=== PATIENT | female | born 2000 | race Caucasian/White ===

== ENCOUNTER 2020-05-30 15:21 | Emergency (ER) | payer OTHER, SELFPAY ==
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
[2020-05-30 16:02] VITALS: BP 121/88; PULSE 75; RESP 18; TEMP 36.7; O2SAT 96; BMI 22.3
[2020-05-30 17:35] LABS: MANUAL DIFF FLAG NO
[2020-05-30 17:39] LABS: Basophils Percent Auto 0.3 % (0-2); Eosinophils Absolute Auto 0.1 X10*3/uL (0.0-0.4); Eosinophils Percent Auto 0.5 % (0-4); Imm Gran Abs Auto 0.02 X10*3/uL (0.00-0.03); Imm Gran Pct Auto 0.2 % (0.0-0.4); Lymphocytes Absolute Auto 2.3 X10*3/uL (1.2-4.9); Lymphocytes Percent Auto 21.1 % (20-40); Mean Corpuscular HGB Conc 31.1 g/dl (31.0-35.0); Mean Corpuscular Hemoglobin 26.7 pg (27.0-33.0); Mean Corpuscular Volume 85.9 fL (80-98); Mean Platelet Volume 10.8 fL (9.4-12.3); Monocytes Absolute Auto 0.5 X10*3/uL (0.1-1.2); Monocytes Percent Auto 4.5 % (2-11); Neutrophils Absolute Auto 7.8 X10*3/uL (2.0-8.3); Neutrophils Percent Auto 73.4 % (45-73); Platelet Count 274 X10*3/uL (160-400); Red Blood Count 5.24 X10*6/uL (4.20-5.50); Red Cell Distribution Width 15.9 % (11.0-16.0); White Blood Count 10.7 X10*3/uL (4.8-10.8)
[2020-05-30 17:40] LABS: COVID-19 Test Negative (Negative)
[2020-05-30 17:58] VITALS: BP 118/83; PULSE 91; RESP 16; TEMP 36.3; O2SAT 99
--- NOTE | 2020-05-30 18:00 | PC.NURSE ---
Pt has bed search in progress.
[2020-05-30 18:02] LABS: Alanine Aminotransferase 18 U/L (0-31); Albumin Level 4.6 g/dL (3.5-5.0); Alkaline Phosphatase 100 U/L (39-117); Anion Gap 14 (12-20); Aspartate Amino Transferase 20 U/L (5-31); Bilirubin Direct < 0.2 mg/dL (0.0-0.5); Bilirubin Total 0.3 mg/dL (0.0-1.0); Blood Urea Nitrogen 7 mg/dL (9-16); Calcium 9.5 mg/dL (8.4-10.2); Carbon Dioxide 28 mmol/L (22-29); Chloride 102 mmol/L (96-108); Creatinine Clr Calc Pharmacy 98.9; Estimated Glomerular Filt Rate > 60; Glucose Random 75 mg/dL (60-115); Sodium 140 mmol/L (135-145); Total Protein 7.5 g/dL (6.5-8.0)
[2020-05-30 22:10] VITALS: BP 126/89; PULSE 109; RESP 20; TEMP 36.3; O2SAT 97
--- NOTE | 2020-05-30 22:26 | PC.NURSE ---
Addendum entered by Robbin Abreu 05/30/20 23:05: PT stated that she is having difficulty breathing. RT came to give nebulizer treatment to the PT. Tested COVID negative earlier today. Original Note: PT stated that she is having difficulty breathing. Asking for a nebulizer treatment but we are unable to use nebulizers at this time due to risk of creating aerosols that could potentially transmit COVID. PT offered rescue inhaler but refused because of her allergies, stating that she becomes tachycardic with albuterol. Provider notified.
[2020-05-30] MEDS: hydrOXYzine HCL 25 MG TABLET PO (22:33)
--- NOTE | 2020-05-30 23:26 | PC.NURSE ---
PT stated that she needs her night time meds before she can go to sleep. PT stated that she takes trazodone, Singulair, and GERD medications at night, but pharmacy scheduled the doses of each med for tomorrow morning. Provider notified. Meds given at unscheduled time.
[2020-05-30] MEDS: Omeprazole 20 MG CAPSULE.DR 40 MG PO (23:35)
[2020-05-30] MEDS: Montelukast Sodium 10 MG TABLET PO (23:36)
[2020-05-30] MEDS: traZODone HCL 50 MG TABLET 75 MG PO (23:36)
[2020-05-30 23:52] VITALS: BP 122/57; PULSE 82; RESP 18; TEMP 36.7; O2SAT 97
[2020-05-31] VITALS (9 sets, daily range): BP systolic 97–155; BP diastolic 54–86; PULSE 63–117; RESP 16–20; TEMP 36.2–37; O2SAT 97–99
--- NOTE | 2020-05-31 06:57 | PC.NURSE ---
Report received. PT currently sleeping, respirations even and unlabored, in no apparent distress. PT remains inpatient bedsearch.
[2020-05-31] MEDS: Omeprazole 20 MG CAPSULE.DR 40 MG PO (07:49)
--- NOTE | 2020-05-31 09:21 | PC.NURSE ---
medications discussed with PT, she states that she takes singulair at night. PT reports that she has a lot of medical conditions and allergies, pt asking to speak with [facility], requested to go to respite, plan of care explained. Pt due to [facility] this afternoon.
[2020-05-31] MEDS: Gabapentin 300 MG CAPSULE 900 MG PO ×2 (09:25→21:56)
[2020-05-31] MEDS: levalbuterol HCL 1.25 MG/3 ML VIAL.NEB INHALE ×2 (09:25→20:50)
[2020-05-31] MEDS: FLUoxetine HCl 20 MG CAPSULE PO (09:25)
[2020-05-31] MEDS: Loratadine 10 MG TABLET PO (09:27)
[2020-05-31 15:40] LABS: UPreg QC Valid YES; Urine Pregnancy NEGATIVE (NEGATIVE)
[2020-05-31 16:04] LABS: Amphetamine Screen Urine Not Detected (Not Detect); Barbiturates, Urine Not Detected (Not Detect); Benzodiazepines Screen Urine Not Detected (Not Detect); Cannabinoid Screen Urine POSITIVE (Not Detect); Cocaine Screen Urine Not Detected (Not Detect); Opiate Screen Urine Not Detected (Not Detect); Phencyclidine Screen Urine Not Detected (Not Detect)
--- NOTE | 2020-05-31 19:46 | PC.NURSE ---
Report received. PT was just reevaluated by Rachell and decision was made to continue to hold this PT as inpatient bed search. PT is tearful and upset at this time. Verbal reassurance provided to the PT and PT was able to maintain behavioral control.
[2020-05-31] MEDS: hydrOXYzine HCL 25 MG TABLET PO (20:01)
--- NOTE | 2020-05-31 20:43 | PC.NURSE ---
PT is complaining of shortness of breath and inflammation in her upper airway. PT had oxygen saturation fluctuating between 90-100%, inspiratory stridor, and an increased heart rate. PT is insisting that the only medication that will help her condition is racemic epinephrine, as she also has a long history of respiratory issues. Provider assessed the PT and ordered a breathing treatment with levobuterol. PT received treatment and is still exhibiting stridor and complaining of shortness of breath.
[2020-05-31] MEDS: Racepinephrine HCL 0.5 ML VIAL.NEB INHALE (21:09)
--- NOTE | 2020-05-31 21:20 | PC.NURSE ---
PT received racemic epinephrine. Stridor has resolved itself and PT is talking on the phone in a calm and relaxed manner. PT's heart rate has decreased and PT is no longer complaining of shortness of breath. PT asked if she can have a pair of underwear dropped off by her family as she is on her period. This nurse told the PT that this would be allowable.
[2020-05-31] MEDS: traZODone HCL 50 MG TABLET 75 MG PO (21:55)
[2020-05-31] MEDS: Montelukast Sodium 10 MG TABLET PO (21:57)
[2020-05-31] MEDS: Mirtazapine 7.5 MG TABLET PO (21:57)
[2020-06-01 06:00] VITALS: BP 109/62; PULSE 98; RESP 20; TEMP 36.2; O2SAT 95
[2020-06-01] MEDS: Omeprazole 20 MG CAPSULE.DR 40 MG PO (06:52)
--- NOTE | 2020-06-01 07:05 | PC.NURSE ---
Report received. PT currently sleeping, respirations even and unlabored, in no apparent distress. PT is inpatient bedsearch.
[2020-06-01] MEDS: Gabapentin 300 MG CAPSULE 900 MG PO (09:24)
[2020-06-01] MEDS: FLUoxetine HCl 20 MG CAPSULE PO (09:24)
[2020-06-01] MEDS: Loratadine 10 MG TABLET PO (09:24)
[2020-06-01 09:31] VITALS: BP 109/61; PULSE 83; TEMP 36.5; O2SAT 97
--- NOTE | 2020-06-01 10:50 | PC.NURSE ---
Pt accepted [facility] for 4pm today, nurse to nurse completed with chadwick. Chadwick requested a copy of Pts covid result and section 12 to be faxed.
== END 2020-06-01 16:00 ==
PROVIDERS: Nurse Practitioner Family; Emergency Provider Emergency Medicine Emergency Medical Services; PCP Pediatrics
DX: F32.9 Major depressive disorder, single episode, unspecified (principal); F43.11 Post-traumatic stress disorder, acute; R45.851 Suicidal ideations; Z20.828 Contact with and (suspected) exposure to other viral communicable diseases; Z79.899 Other long term (current) drug therapy
CPT/HCPCS: 36415; 80048; 80076; 80307; 81025; 85025; 87635; 94640; 99285

== ENCOUNTER 2024-08-05 13:17 | Outpatient (AMB) | payer MEDICARE, MEDICAID, SELFPAY ==
[2024-08-05 13:18] VITALS: BP 100/68; PULSE 68; O2SAT 96; BMI 26.0
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
--- OUTSIDE RECORDS SUMMARY | 2024-08-05 14:53 | XMS_ITS | Encounter Summary ---
Author Organization [facility] Address [address] [place] [address] Care Team Providers Care Lathing Supervisor Name Role Phone Eddie, Amy Gonzales SINGH Primary Care Provider [phone] Reason for Visit * Reason Comments Medication Refill Encounter Details Date Type Department Care Team (Late st Contact Info) Description 12/11/2019 Refill [facility] Gastroenterology, [place] [address] [place] [address] Elif Bolton MD [address] [place] [address] Poor appetite Social History Tobacco Use Types Packs/Day Years Used Date Smoking Tobacco: Never Comments No Sex and Gender Information Value Date Recorded Sex Assigned at Not on file Legal Sex Female 2:19 PM EDT Gender Identity Not on file Sexual Orientation Not on file documented as of this encounter Miscellaneous Notes * Telephone Encounter - Jayde Montesinos RN - 12/12/2019 2:31 PM EDT Spoke with [facility]ong and she stated she is not taking this medication and does not need it refilled. * Telephone Encounter - Jayde Montesinos RN - 12/12/2019 9:09 AM EDT Last visit: 12/05/19 Next visit: 03/06/20 Weight: 63.1 kg Allergies: reviewed Current dose: Reviewed Called [facility] [phone] to verify cyproheptadine is one of her active medications. Left voicemail message. documented in this encounter Plan of Treatment Not on file documented as of this encounter Visit Diagnoses Diagnosis Poor appetite Anorexia documented in this encounter Care Teams Lathing Supervisor Relationship Specialty Start Date End Date Eduarda Morgan DO [address] [place] [address] PCP - General General Pediatrics 03/03/19 documented as of this encounter
--- OUTSIDE RECORDS SUMMARY | 2024-08-05 14:53 | XMS_ITS | Encounter Summary ---
Author Organization [facility] Address [address] [place] [id number] Care Team Providers Care Manager Of Health Name Role Phone Eduarda Morgan DO Primary Care Provider [phone] Reason for Visit * Reason Comments Medication Refill Encounter Details Date Type Department Care Team (Late st Contact Info) Description 06/12/2019 Refill [facility] Gastroenterology[address] [phone] Elif Bolton MD [address] [place] [id number] Generalized abdominal pain Social History Tobacco Use Types Packs/Day Years Used Date Smoking Tobacco: Never Comments No Sex and Gender Information Value Date Recorded Sex Assigned at Not on file Legal Sex Female 2:19 PM EDT Gender Identity Not on file Sexual Orientation Not on file documented as of this encounter Plan of Treatment Not on file documented as of this encounter Visit Diagnoses Diagnosis Generalized abdominal pain Abdominal pain, generalized documented in this encounter Care Teams Manager Of Health Relationship Specialty Start Date End Date Eduarda Morgan DO [address] [place] [address] PCP - General General Pediatrics 03/03/19 documented as of this encounter
--- OUTSIDE RECORDS SUMMARY | 2024-08-05 14:53 | XMS_ITS | Encounter Summary ---
Author Organization [facility] Address [address] [place] [address] Care Team Providers Care Photograph Developer Name Role Phone Eduarda Morgan DO Primary Care Provider [phone] Reason for Visit * Reason Comments Medication Refill Encounter Details Date Type Department Care Team (Late st Contact Info) Description 02/28/2020 Refill [facility] Gastroenterology, [place] [address] [place] [address] Elif Bolton MD [address] [place] [address] Poor appetite Social History Tobacco Use Types Packs/Day Years Used Date Smoking Tobacco: Never Comments No Sex and Gender Information Value Date Recorded Sex Assigned at Not on file Legal Sex Female 2:19 PM EDT Gender Identity Not on file Sexual Orientation Not on file documented as of this encounter Miscellaneous Notes * Telephone Encounter - Jayde Montesinos RN - 02/28/2020 11:44 AM EDT Last visit: 12/05/19 Next visit: 03/06/20 Weight: 63.1 KG Allergies: reviewed Current dose: 12/11/19 message patient is not longer taking this medication documented in this encounter Plan of Treatment Not on file documented as of this encounter Visit Diagnoses Diagnosis Poor appetite Anorexia documented in this encounter Care Teams Photograph Developer Relationship Specialty Start Date End Date Eduarda Morgan DO [address] [place] [address] PCP - General General Pediatrics 03/03/19 documented as of this encounter
--- OUTSIDE RECORDS SUMMARY | 2024-08-05 14:53 | XMS_ITS | Clinical Summary ---
Author Organization [facility] Address [address] [place] [id number] Care Team Providers Care Stripper Shovel Operator Name Role Phone Eduarda Morgan DO Primary Care Provider [phone] Source Comments Please note that some or all of the patient's information could have additional privacy protections. State laws allow health care providers to render certain types of treatment to minors without parental consent. Please do not assume that this information can be shared solely by obtaining just the consent of the patient's parent/guardian. Please determine if all or part of the patient's care was rendered without parent/guardian involvement. And, if so, obtain the minor's consent prior to disclosure.[facility] Allergies Active Allergy Reactions Criticality Noted Date Comments Albuterol Hives 03/21/2019 Venom-Honey Bee 05/11/2019 Egg Diarrhea 05/11/2019 uncooked eggs per mom Grass 05/11/2019 Medications mometasone/formo terol (DULERA INHL) Inhale into the lungs Active montelukast sodium (SINGULAIR ORAL) Take by mouth Active fluticasone/julio nterol (BREO ELLIPTA INHL) Inhale into the lungs Active ipratropium (ATROVENT HFA) 17 mcg/actuation inhaler Inhale into the lungs every 6 (six) hours Active GABAPENTIN ORAL Take 900 mg by mouth 2 (two) times daily Active adalimumab (HUMIRA SUBQ) Inject into the skin Active omeprazole (PRILOSEC) 40 MG capsule Take 40 mg by mouth 2 (two) times daily Active etanercept (ENBREL SUBQ) Inject into the skin Active cyclobenzaprine (FLEXERIL) 5 MG tablet Take 5 mg by mouth nightly 0 9 Active FLUoxetine (PROZAC) 10 MG capsule Take 10 mg by mouth daily 1 9 Active ferrous gluconate 37.5 mg of elemental iron Tablet Take 75 mg of elemental iron by mouth 2 (two) times daily 4 9 Active traZODone (DESYREL) 50 MG tablet 0 Active FLUoxetine (PROZAC) 20 MG capsule Take 20 mg by mouth daily 0 Active cetirizine (ZYRTEC) 10 MG tablet 0 Active XULANE 150-35 mcg/24 hr 0 Active butalbital-aceta minophen-caffein e (ESGIC) 50-325-40 mg per tablet 0 Active INCRUSE ELLIPTA 62.5 mcg/actuation Disk with Device 0 Active polyethylene glycol (MIRALAX) 17 gram/dose powderIndication s:Constipation, unspecified constipation type 1 capful ( mixed in 8 oz water), once a day 507 g 3 0 Active dicyclomine (BENTYL) 10 MG capsuleIndicatio ns:Generalized abdominal pain TAKE 1 CAPSULE BY MOUTH TWICE A DAY 60 capsule 2 0 Active Additional Information Patient not taking.Reported on 12/05/2019 baclofen 5 mg TabletIndication s:Gastroesophage al reflux disease, esophagitis presence not specified Take 1 tablet (5 mg) by mouth 3 (three) times daily 90 tablet 2 0 Active Active Problems Problem Noted Date Diagnosed Date Dyspnea on exertion 05/11/2019 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 Palpitations 05/11/2019 H/O endoscopy 05/11/2019 Gastroesophageal reflux dise ase, esophagitis presence not specified 03/31/2019 Overview (03/31/2019): Added automatically from request for surgery [id number] Immunizations Name Administration Dates Next Due Influenza, Unspecified 02/28/2019 Family History Medical History Relation Name Comments Asthma Brother Bipolar disorder Brother Cardiac Surgery Brother Alcohol abuse Father Asthma Father Hypertension Maternal Aunt Heart disease Maternal Grandfather Hypertension Maternal Grandfather Diabetes type II Maternal Grandmother Hypertension Maternal Uncle Arthritis Mother Hypertension Mother Mental illness Paternal Aunt Alzheimer's disease Paternal Grandfather Cancer Paternal Grandmother Diabetes type II Paternal Grandmother No Known Problems Paternal Uncle Anxiety disorder Sister Asthma Sister Anesthesia problems Neg Hx Relation Name Status Comments Brother Father Maternal Aunt Maternal Grandfather Maternal Grandmother Alive Maternal Uncle Mother Alive Paternal Aunt Paternal Grandfather Paternal Grandmother Paternal Uncle Sister Social History Tobacco Use Types Packs/Day Years Used Date Smoking Tobacco: Never Other Needs Answer Date Recorded Anything else about your child you'd like help w ith? Not on file 02/13/2023 Share good news about positive changes: Not on f ile 02/13/2023 Comments No Sex and Gender Information Value Date Recorded Sex Assigned at Not on file Legal Sex Female 2:19 PM EDT Gender Identity Not on file Sexual Orientation Not on file Last Filed Vital Signs Vital Sign Reading Time Taken Comments Blood Pressure 122/72 12/05/2019 1:43 PM EDT Pulse 80 12/05/2019 1:43 PM EDT Temperature 36.7 ??C (98.1 ??F) 05/12/2019 9:33 AM ES T Respiratory Rate 19 05/12/2019 10:08 AM EST Oxygen Saturation 95% 05/12/2019 10:08 AM EST Inhaled Oxygen Concentration - - Weight 63.1 kg (139 lb 1.8 oz) 12/05/2019 1:43 P M EDT Height 157.8 cm (5' 2.13 ) 12/05/2019 1:43 PM ED T Body Mass Index 25.34 12/05/2019 1:43 PM EDT Plan of Treatment Health Maintenance Due Date Last Done Comments DTaP/TDAP/TD VACCINES (1 - Tdap) 11/05/2007 ADOLESCENT HIV SCREENING 2013 COVID-19 Vaccine (2023-2 5 season) 2024 INFLUENZA (#1) 2024 02/28/2019 NIRSEVIMAB VACCINES UNDER 8 MONTHS Aged Out No longer eligible b ased on patient's age to complete this topic Insurance [facility] ([employer]) Care Teams Stripper Shovel Operator Relationship Specialty Start Date End Date Eduarda Morgan DO [address] [place] [address] PCP - General General Pediatrics 03/03/19
--- OUTSIDE RECORDS SUMMARY | 2024-08-05 14:53 | XMS_ITS | Encounter Summary ---
Author Organization [facility] Address [address] [place] [address] Care Team Providers Care Facilities Locator Name Role Phone Eduarda Morgan DO Primary Care Provider [phone] Reason for Visit * Reason Comments Medication Refill Encounter Details Date Type Department Care Team (Late st Contact Info) Description 10/02/2019 Refill [facility] Gastroenterology[address] [phone] Elif Bolton MD [address] [place] [phone] Generalized abdominal pain Social History Tobacco Use Types Packs/Day Years Used Date Smoking Tobacco: Never Comments No Sex and Gender Information Value Date Recorded Sex Assigned at Not on file Legal Sex Female 2:19 PM EDT Gender Identity Not on file Sexual Orientation Not on file documented as of this encounter Miscellaneous Notes * Telephone Encounter - Jayde Montesinos RN - 10/03/2019 10:53 AM EDT Last visit: 07/12/2019 Next visit: 10/11/2019 Weight: 64.8 kg Allergies: reviewed Current dose: Bentyl 10 mg tab documented in this encounter Plan of Treatment Not on file documented as of this encounter Visit Diagnoses Diagnosis Generalized abdominal pain Abdominal pain, generalized documented in this encounter Care Teams Facilities Locator Relationship Specialty Start Date End Date Eduarda Morgan DO [address] [place] [address] PCP - General General Pediatrics 03/03/19 documented as of this encounter
--- OUTSIDE RECORDS SUMMARY | 2024-08-05 14:53 | XMS_ITS | Clinical Summary ---
Author Organization [facility] Address [address] [place] [address] Care Team Providers Care Photocopying Equipment Mechanic Name Role Phone Unavailable Primary Care Provider Unavailabl e Social History Tobacco Use Types Packs/Day Years Used Date Smoking Tobacco: Never Assessed Comments Unknown Sex and Gender Information Value Date Recorded Sex Assigned at Not on file Legal Sex Female 11:03 PM EST Gender Identity Not on file Sexual Orientation Not on file Plan of Treatment Health Maintenance Due Date Last Done Comments Gonorrhea/Chlamydia Screening 2000 HPV Vaccines (1 - 3-dose series) 11/05/2015 Meningococcal B Vacine (1 of 2 - Standard) 2016 DTaP,Tdap,and Td Vaccines (1 - Tdap) 11/05/2019 Hepatitis B Vaccines (1 of 3 - 19+ 3-dose series) 11/05/2019 Cervical Cancer Screening: P ap Smear 2021 Depression Screening 05/04/2022 HIV Screening 05/04/2022 Hepatitis C Screening 05/04/2022 Social Influencers of Health Screening 05/04/2022 COVID-19 Vaccine (2023-2 5 season) 2024 Influenza Vaccine (#1) 2024 0, 07/02/2019 Pneumococcal Vaccine: Pediatrics (0 to 5 Years) and At-Risk Patients (6 to 64 Years) Aged Out 06/15/2013 No longer eligible b ased on patient's age to complete this topic HIB Vaccines Aged Out No longer eligi ble based on patient's age to complete this topic Hepatitis A Vaccines Aged Out No long er eligible based on patient's age to complete this topic IPV Vaccines Aged Out No longer eligi ble based on patient's age to complete this topic MMR Vaccines Aged Out No longer eligi ble based on patient's age to complete this topic Meningococcal ACWY Vaccine Aged Out N o longer eligible based on patient's age to complete this topic RSV Immunization Patients Under 20 months Aged Out No longer eligible b ased on patient's age to complete this topic Varicella Vaccines Aged Out No longer eligible based on patient's age to complete this topic
== END 2024-08-05 14:02 | disposition home or self-care (01) ==
DX: J45.909 Unspecified asthma, uncomplicated (principal); K21.9 Gastro-esophageal reflux disease without esophagitis; M54.9 Dorsalgia, unspecified; F43.10 Post-traumatic stress disorder, unspecified; F32.9 Major depressive disorder, single episode, unspecified; F41.9 Anxiety disorder, unspecified; K58.9 Irritable bowel syndrome, unspecified; R06.1 Stridor; G47.00 Insomnia, unspecified

== ENCOUNTER → 2024-08-05 13:17 | Outpatient (BNVA) | payer MEDICARE, SELFPAY | DX: J45.909 Unspecified asthma, uncomplicated (principal); K21.9 Gastro-esophageal reflux disease without esophagitis; M54.9 Dorsalgia, unspecified; F32.9 Major depressive disorder, single episode, unspecified; F41.9 Anxiety disorder, unspecified; K58.9 Irritable bowel syndrome, unspecified; G47.00 Insomnia, unspecified; R06.1 Stridor | CPT/HCPCS: 99202 ==

== ENCOUNTER 2024-08-11 11:30 | Outpatient (REF) | payer MEDICARE, MEDICAID, SELFPAY ==
[2024-08-11 12:10] LABS: MANUAL DIFF FLAG NO
[2024-08-11 12:52] LABS: Basophils Percent Auto 0.5 % (0-2); Eosinophils Absolute Auto 0.1 X10*3/uL (0.0-0.4); Eosinophils Percent Auto 2.3 % (0-4); Hematocrit 44.9 % (37.0-47.0); Hemoglobin 15.1 g/dl (12.0-16.0); Imm Gran Abs Auto 0.01 X10*3/uL (0.00-0.03); Imm Gran Pct Auto 0.2 % (0.0-0.4); Lymphocytes Percent Auto 33.1 % (20-40); Mean Corpuscular HGB Conc 33.6 g/dl (31.0-35.0); Mean Corpuscular Hemoglobin 29.7 pg (27.0-33.0); Mean Corpuscular Volume 88.4 fL (80.0-98.0); Mean Platelet Volume 10.2 fL (9.4-12.3); Monocytes Absolute Auto 0.4 X10*3/uL (0.1-1.2); Monocytes Percent Auto 6.2 % (2-11); Neutrophils Absolute Auto 3.5 x10*3/uL (2.0-8.3); Neutrophils Percent Auto 57.7 % (45-73); Platelet Count 241 X10*3/uL (160-400); Red Blood Count 5.08 X10*6/uL (4.20-5.50); Red Cell Distribution Width 12.7 % (11.0-16.0)
[2024-08-11 13:28] LABS: Alanine Aminotransferase 20 U/L (0-31); Albumin Level 4.4 g/dL (3.5-5.0); Alkaline Phosphatase 79 U/L (39-117); Anion Gap 9 (12-20); Aspartate Amino Transferase 21 U/L (5-31); Bilirubin Total 0.4 mg/dL (0.0-1.0); Blood Urea Nitrogen 18 mg/dL (9-16); Calcium 9.3 mg/dL (8.4-10.2); Carbon Dioxide 26 mmol/L (22-29); Chloride 109 mmol/L (96-108); Estimated Glomerular Filt Rate > 60; Glucose Random 79 mg/dL (60-115); Potassium 4.4 mmol/L (3.3-5.1); Sodium 140 mmol/L (135-145); Total Protein 7.4 g/dL (6.5-8.0)
[2024-08-11 13:44] LABS: Free T4 (Free Thyroxine) 0.92 ng/dL (0.71-1.85); TSH reflex Free T4 1.94 uIU/mL (0.32-4.0); Vitamin D 25-OH Total 17.4 ng/mL (>30)
[2024-08-11 14:06] LABS: Folate 15.7 ng/mL (> or = 4.0); Vitamin B12 601 pg/mL (200-900)
--- OUTSIDE RECORDS SUMMARY | 2024-08-11 14:53 | XMS_ITS | Encounter Summary ---
Author Organization [facility] Address [address] [place] [address] Care Team Providers Care Window Unit Air Conditioning Mechanic Name Role Phone Eddie, Amy Gonzales SINGH Primary Care Provider [phone] Reason for Visit * Reason Comments Medication Refill Encounter Details Date Type Department Care Team (Late st Contact Info) Description 12/11/2019 Refill [facility] Gastroenterology, [place] [address] [place] [address] Elif Bolton MD [address] [place] [address] Poor appetite Social History Tobacco Use Types [...] Allergies: reviewed Current dose: Reviewed Called [facility] [phone] to verify cyproheptadine is one of her active medications. Left voicemail message. documented in this encounter Plan of Treatment Not on file documented as of this encounter Visit Diagnoses Diagnosis Poor appetite Anorexia documented in this encounter Care Teams Window Unit Air Conditioning Mechanic Relationship Specialty Start Date End Date Eduarda Morgan DO [address] [place] [address] PCP - General General Pediatrics 03/03/19 documented as of this encounter
--- OUTSIDE RECORDS SUMMARY | 2024-08-11 14:53 | XMS_ITS | Encounter Summary ---
Author Organization [facility] Address [address] [place] [address] Care Team Providers Care Ager Operator Name Role Phone Eduarda Morgan DO Primary Care Provider [phone] Reason for Visit * Reason Comments Medication Refill Encounter Details Date Type Department Care Team (Late st Contact Info) Description 10/02/2019 Refill [facility] Gastroenterology[address] [phone] Elif Bolton MD [address] [place] [address] Generalized abdominal pain Social History Tobacco Use [...] generalized documented in this encounter Care Teams Ager Operator Relationship Specialty Start Date End Date Eduarda Morgan DO [address] [place] [address] PCP - General General Pediatrics 03/03/19 documented as of this encounter
--- OUTSIDE RECORDS SUMMARY | 2024-08-11 14:53 | XMS_ITS | Encounter Summary ---
Author Organization [facility] Address [address] [place] [address] Care Team Providers Care Data Librarian Name Role Phone Eduarda Morgan DO Primary Care Provider [phone] Reason for Visit * Reason Comments Medication Refill Encounter Details Date Type Department Care Team (Late st Contact Info) Description 06/12/2019 Refill [facility] Gastroenterology[address] [phone] Elif Bolton MD [address] [place] [address] Generalized abdominal pain Social History Tobacco Use [...] generalized documented in this encounter Care Teams Data Librarian Relationship Specialty Start Date End Date Eduarda Morgan DO [address] [place] [address] PCP - General General Pediatrics 03/03/19 documented as of this encounter
--- OUTSIDE RECORDS SUMMARY | 2024-08-11 14:53 | XMS_ITS | Clinical Summary ---
Author Organization [facility] Address [address] [place] [address] Care Team Providers Care Tack Cleaner Name Role Phone Unavailable Primary Care Provider [...]
--- OUTSIDE RECORDS SUMMARY | 2024-08-11 14:53 | XMS_ITS | Clinical Summary ---
Author Organization [facility] Address [address] [place] [address] Care Team Providers Care Dynamics Ax Solution Architect Name Role Phone Eduarda Morgan DO Primary Care Provider [phone] Source Comments Please note that some or [...] so, obtain the minor's consent prior to disclosure.[facility] Allergies Active Allergy Reactions Criticality Noted [...] (03/31/2019): Added automatically from request for surgery [id number] Immunizations Immunization Administration Dates Next Due Influenza, Unspecified 02/28/2019 [...] patient's age to complete this topic Insurance [facility] ([email or web address]) Care Teams Dynamics Ax Solution Architect Relationship Specialty Start Date End Date Eduarda Morgan DO [address] [place] [address] PCP - General General Pediatrics 03/03/19
--- OUTSIDE RECORDS SUMMARY | 2024-08-11 14:53 | XMS_ITS | Encounter Summary ---
Author Organization [facility] Address [address] [place] [address] Care Team Providers Care Engineering Specialist Technician Name Role Phone Eduarda Morgan DO Primary Care Provider [phone] Reason for Visit * Reason Comments Medication Refill Encounter Details Date Type Department Care Team (Late st Contact Info) Description 02/28/2020 Refill [facility] Gastroenterology, [place] [address] [place] [address] Elif Bolton MD [address] [place] [address] Poor appetite Social History Tobacco Use Types [...] Anorexia documented in this encounter Care Teams Engineering Specialist Technician Relationship Specialty Start Date End Date Eduarda Morgan DO [address] [place] [address] PCP - General General Pediatrics 03/03/19 documented as of this encounter
== END 2024-08-11 11:31 | disposition home or self-care (01) ==
LOC: HO.LAB 11:30
DX: Z00.00 Encounter for general adult medical examination without abnormal findings (principal)
CPT/HCPCS: 36415; 80053; 82306; 82607; 82746; 84439; 84443; 85025

== ENCOUNTER 2024-09-06 10:07 | Outpatient (AMB) | payer MEDICARE, MEDICAID, SELFPAY ==
--- NOTE | 2024-09-06 10:11 | A.OFFPC_ITS ---
Intake Visit Reasons: f/u medication Intake Note: Patient is here to follow up on medication review. Pt requesting excuse letter for work. Senior Clinician Required: No Nurse Practitioner Manager: Not Required per policy Accompanied by: Self / Same As Patient Allergies albuterol Allergy (Severe, Verified 09/06/24 10:12) tachycardia bee pollen [bee stings] Allergy (Verified 09/06/24 10:12) Anaphylaxis egg Adverse Reaction (Verified 09/06/24 10:12) Unknown Medication List - Last Reconciled 09/06/24 by Barbara Ware PA-C ciclesonide 160 mcg/actuation ([place]ves[place]) 1 puff inhalation BID epinephrine IM esomeprazole magnesium 40 mg PO DAILY hydroxyzine HCl 25 mg PO BEDTIME levalbuterol HCl 1.25 mg inhalation Q4-6H PRN levalbuterol tartrate 45 mcg/actuation 2 inhalations inhalation Q6H levonorgestrel (Liletta) intrauterine omeprazole 40 mg PO BID pregabalin mg PO BID Tobacco use date assessed: 08/05/24 Dental Screening Dental Screen Date: 08/05/24 HPI f/u medication HPI Details 23-year-old female with past medical his tory of asthma, GERD, IBS, anxiety, depression, PTSD and insomnia last seen 07/2024 coming in for medication follow up.? At her last visit, started on hydroxyzine at bedtime for insomnia. Patient tells us today she tried the hydroxyzine for sleep at found that she had excessive fatigue in the mornings. She was seen by psych consultation and recommended to start on mirtazapine prescribed by her PCP. She is waiting on a phone call to schedule with [facility] for her back pain. She has an ear nose and throat appointment in September to follow up on her tracheal stenosis and an appointment with her [place] [facility] st[facility] at the end of September for management of her GERD. She does continue to have difficulty sleeping as well as anxiety and depression. [facility] Medical History Trachea, stenosis SVC syndrome BPD (bronchopulmonary dysplasia) follow-up encounter Surgical History H/O hernia repair H/O angioplasty H/O endoscopy H/O section History of fundoplication Family History Other Alcoholism Bipolar 1 disorder Breast cancer Depression Diabetes Hypertension Mental health disorder Skin cancer Substance use disorder Throat cancer Tongue cancer Uterine cancer Social History Housing: Apartment Alcohol intake: never Comment: PT still having difficulty breathing and stridor Patient Tobacco Use Status: Never used Tobacco e-Cigarette/Vaping Use: Never Used Second Hand Smoke Exposure: No Substance Use Type: Marijuana service: No Current occupational status: employed Current occupational exposures/hazards: No Cognitive needs: No Hearing needs: No Vision needs: No Questionnaire Thrive Questionnaire Date Thrive assessed: 08/05/24 JUSTUS-7 AMB Questionnaire JUSTUS-7 Date JUSTUS - 7 assessed: 08/05/24 Source: Developed by Drs. Tony Sutton, Meeta Mendez, Danny Ceja and colleagues, with an educational frida from [employer] [place]. Review of Systems Const Denies body aches, Denies chills, Denies fever(s), Denies headache(s) and Denies poor appetite Eyes Reports no additional complaints ENT Reports dysphagia, Denies dizziness, Denies headache(s) and Denies odynophagia Card Denies chest pain, Denies lightheadedness and Denies dyspnea Resp Denies cough and Denies dyspnea GI Reports dysphagia, Reports dyspepsia, Reports heartburn, Reports nausea, Denies odynophagia and Denies vomiting Reports no additional complaints Musc Reports no additional complaints and Denies abnormal gait Skin/Breast Reports system reviewed and no additional complaints, except as documented Neuro Denies abnormal gait, Denies dizziness and Denies headache(s) Psych Reports no additional complaints Physical exam (Primary Care) Vital Signs: Vital signs and physical exam not performed due to nature of telehealth visit Tobacco/Smoking Status: Tobacco use Status Tobacco use date assessed 08/05/24 09/06/24 10:15 Patient Tobacco Use Status Never used Tobacco 09/06/24 10:15 e-Cigarette/Vaping Use Never Used 09/06/24 10:15 Thrive Assessment: Date of Thrive Assessment Date Thrive assessed 08/05/24 09/06/24 10:15 Telehealth Telehealth Telehealth Platform: Telephone Location of provider rendering services: practice address Location of patient: address on file Patient Identification confirmed using: Name, : Yes Telehealth method: voice only Patient verbally consented to treatment: Yes Patient verbally consented to billing insurance company: Yes Patient informed of any privacy concerns related to visit: Yes Coding Level of Care Code Tele Est Pt Level 3 (89694) Diagnoses Insomnia G47.00 Stridor R06.1 PTSD (post-traumatic stress disorder) F43.10 Depression F32.9 Anxiety F41.9 GERD (gastroesophageal reflux disease) K21.9 Fatigue R53.83 Assessment & Plan Assessment & Plan (1) Insomnia: Code(s): G47.00 - Insomnia, unspecified Category: Medical Plan: Plan to start on mirtazapine as recommended by the psychiatrist for insomnia, depression and anxiety. Discussed with patient possible side effects of this medication. Plan to follow up in 2 months via telehealth for follow up. (2) Stridor: Code(s): R06.1 - Stridor Category: Medical Plan: Patient has stridor secondary to acid reflux and tracheal stenosis. She has not ear nose and throat that she follows with in [place] through [facility] however is looking to establish care with an adult provider in this area. Has a appointment at the end of September with [facility] (3) PTSD (post-traumatic stress disorder): Code(s): F43.10 - Post-traumatic stress disorder, unspecified Category: Medical Plan: Patient was seen by psychiatrist recommended mirtazapine which was prescribed today plan to have telehealth visit in 2 months to follow up on medication. (4) Depression: Code(s): F32.9 - Major depressive disorder, single episode, unspecified Category: Medical Plan: Patient was seen by psychiatrist recommended mirtazapine which was prescribed today plan to have telehealth visit in 2 months to follow up on medication. (5) Anxiety: Code(s): F41.9 - Anxiety disorder, unspecified Category: Medical Plan: Patient was seen by psychiatrist recommended mirtazapine which was prescribed to day plan to have telehealth visit in 2 months to follow up on medication. (6) GERD (gastroesophageal reflux disease): Code(s): K21.9 - Gastro-esophageal reflux disease without esophagitis Category: Medical Plan: Avoid trigger foods such as citrus, tomato products, soda, caffeine, spicy foods and other foods that may be irritating to your stomach. Avoid laying flat 3-4 hours after eating and elevate the head of the bed 30 degrees to prevent acid from moving into the esophagus. Continue on omeprazole. Seeing [facility] in September (7) Fatigue: Code(s): R53.83 - Other fatigue Category: Medical Plan: Patient having fatigue likely related to her insomnia plan to start on mirtazapine for insomnia and monitor symptom improvement. Patient was also recommended by the psychiatrist to have iron level drawn, labs ordered today. Plan This note was constructed using voice recognition software. While every effort has been made to ensure accuracy and incoming inspector, still areas may have been included sometimes these areas may affect the content or meeting of the given symptoms. Total time spent caring for the patient today was 20 minutes. This includes time spent before the visit reviewing the chart, time spent during the visit, and time spent after the visit and documentation.
--- OUTSIDE RECORDS SUMMARY | 2024-09-06 11:49 | XMS_ITS | Clinical Summary ---
Author Organization [facility] Address [address] [place] [address] Care Team Providers Care Rabble Furnace Tender Name Role Phone Eduarda Morgan DO Primary Care Provider Source Comments Please note that some or [...] so, obtain the minor's consent prior to disclosure.[facility] Allergies Active Allergy Reactions Criticality Noted [...] (03/31/2019): Added automatically from request for surgery [id number] Immunizations Immunization Administration Dates Next Due Influenza, [...] this topic Insurance [facility] ([employer]) Care Teams Rabble Furnace Tender Relationship Specialty Start Date End Date Eduarda Morgan DO [address] [place] [address] PCP - General General Pediatrics 03/03/19
--- OUTSIDE RECORDS SUMMARY | 2024-09-06 11:49 | XMS_ITS | Clinical Summary ---
Author Organization [facility] it Address [address] [place] [address] Care Team Providers Care Mechanical Spreader Operator Name Role Phone Unavailable Primary Care Provider [...] (1 - 3-dose series) 11/05/2015 Meningococcal B Vaccine (1 o f 2 - Standard) 2016 DTaP,Tdap,and Td Vaccines (1 - Tdap) 11/05/2019 Hepatitis B Vaccines (1 of 3 - 19+ 3-dose series) 11/05/2019 Cervical Cancer Screening: P ap Smear 2021 Depression Screening 05/04/2022 HIV Screening 05/04/2022 Hepatitis C Screening 05/04/2022 Social Influencers of Health Screening 05/04/2022 COVID-19 Vaccine ( - 2023-2 5 season) 2024 Influenza Vaccine (#1) 2024 [...]
--- OUTSIDE RECORDS SUMMARY | 2024-09-06 11:49 | XMS_ITS | Encounter Summary ---
Author Organization [facility] Address [address] [place] [address] Care Team Providers Care Construction Mgr Name Role Phone Eddie, Amy Gonzales SINGH Primary Care Provider [phone] Reason for Visit * Reason Comments Medication Refill Encounter Details Date Type Department Care Team (Late st Contact Info) Description 12/11/2019 Refill [facility] Gastroenterology, [place] [address] [place] [address] Elif Bolton MD [address] [place] [address] Poor appetite Social History Tobacco Use Types [...] Allergies: reviewed Current dose: Reviewed Called [facility]ong [phone] to verify cyproheptadine is one of her active medications. Left voicemail message. documented in this encounter Plan of Treatment Not on file documented as of this encounter Visit Diagnoses Diagnosis Poor appetite Anorexia documented in this encounter Care Teams Construction Mgr Relationship Specialty Start Date End Date Eduarda Morgan DO [address] [place] [address] PCP - General General Pediatrics 03/03/19 documented as of this encounter
--- OUTSIDE RECORDS SUMMARY | 2024-09-06 11:49 | XMS_ITS | Encounter Summary ---
Author Organization [facility] Address [address] [place] [address] Care Team Providers Care Taker Off Name Role Phone Eduarda Morgan DO Primary Care Provider [phone] Reason for Visit * Reason Comments Medication Refill Encounter Details Date Type Department Care Team (Late st Contact Info) Description 06/12/[address] [facility] Gastroenter[address] [phone] Elif Bolton MD [address] [place] [address] Generalized abdominal pain Social History Tobacco Use [...] generalized documented in this encounter Care Teams Taker Off Relationship Specialty Start Date End Date Eduarda Morgan DO [address] [place] [address] PCP - General General Pediatrics 03/03/19 documented as of this encounter
--- OUTSIDE RECORDS SUMMARY | 2024-09-06 11:49 | XMS_ITS | Encounter Summary ---
Author Organization [facility] Address [address] [place] [address] Care Team Providers Care Metal Container Maker Name Role Phone Eduarda Morgan DO Primary Care Provider [phone] Reason for Visit * Reason Comments Medication Refill Encounter Details Date Type Department Care Team (Late st Contact Info) Description 10/02/2019 Refill [facility] Gastroenterology[address] [phone] Elif Bolton MD [address] [place] [address] Generalized abdominal pain Social History Tobacco Use [...] generalized documented in this encounter Care Teams Metal Container Maker Relationship Specialty Start Date End Date Eduarda Morgan DO [address] [place] [address] PCP - General General Pediatrics 03/03/19 documented as of this encounter
--- OUTSIDE RECORDS SUMMARY | 2024-09-06 11:49 | XMS_ITS | Encounter Summary ---
Author Organization [facility] Address [address] [place] [address] Care Team Providers Care It Systems Engineer Name Role Phone Eduarda Morgan DO Primary Care Provider Reason for Visit * Reason Comments Medication Refill Encounter Details Date Type Department Care Team (Late st Contact Info) Description 02/28/2020 Refill [facility] Gastroenterology, [place] [address] [place] [address] Elif Bolton MD [address] [place] [address] Poor appetite Social History Tobacco Use Types [...] Anorexia documented in this encounter Care Teams It Systems Engineer Relationship Specialty Start Date End Date Eduarda Morgan DO [address] [place] [address] PCP - General General Pediatrics 03/03/19 documented as of this encounter
== END 2024-09-06 10:33 | disposition home or self-care (01) ==
LOC: HO.HMCH 10:07
DX: G47.00 Insomnia, unspecified (principal); R06.1 Stridor; F43.10 Post-traumatic stress disorder, unspecified; F32.9 Major depressive disorder, single episode, unspecified; F41.9 Anxiety disorder, unspecified; K21.9 Gastro-esophageal reflux disease without esophagitis; R53.83 Other fatigue

== ENCOUNTER → 2024-09-06 10:07 | Outpatient (BNVA) | payer MEDICARE, MEDICAID, SELFPAY | DX: Z13.89 Encounter for screening for other disorder (principal) ==

== ENCOUNTER 2024-11-08 11:16 | Outpatient (AMB) | payer MEDICARE, MEDICAID, SELFPAY ==
--- NOTE | 2024-11-08 11:16 | A.OFFPC_ITS ---
Intake Visit Reasons: f/u medication Facing Grinder Required: No Printer Technician: Not Required per policy Accompanied by: Self / Same As Patient Allergies albuterol Allergy (Severe, Verified 11/08/24 11:42) tachycardia bee pollen [bee stings] Allergy (Verified 11/08/24 11:42) Anaphylaxis egg Adverse Reaction (Verified 11/08/24 11:42) Unknown Medication List - Last Reconciled 11/08/24 by Barbara Ware PA-C cholecalciferol (vitamin D3) 25 mcg PO DAILY ciclesonide 160 mcg/actuation (Alvesco) 1 puff inhalation BID epinephrine IM esomeprazole magnesium 40 mg PO DAILY levalbuterol HCl 1.25 mg inhalation Q4-6H PRN levalbuterol tartrate 45 mcg/actuation 2 inhalations inhalation Q6H levonorgestrel (Liletta) intrauterine mirtazapine 7.5 mg PO BEDTIME omeprazole 40 mg PO BID pregabalin mg PO BID Tobacco use date assessed: 11/08/24 Dental Screening Dental Screen Date: 08/05/24 HPI f/u medication HPI Details 24-year-old female with past medical his tory of asthma, GERD, IBS, anxiety, depression, PTSD and insomnia last seen 08/2024 presenting via telehealth for follow up on medication. Patient was seen by ENT Dr. Camara she is referred to thoracic surgery through [facility] and was recently seen last week. [facility] felt her cases to complex and referred [place] [facility] She is no longer seeing her psychiatrist but is interested in counseling. She discontinued her mirtazapine as she had a desirable side effects and feels her mental health has been improving and is declining medication at this time. She does feel her fatigue has been improving but is still very mild. [facility] Medical History Trachea, stenosis SVC syndrome BPD (bronchopulmonary dysplasia) follow-up encounter Surgical History H/O hernia repair H/O angioplasty H/O endoscopy H/O section History of fundoplication Family History Other Alcoholism Bipolar 1 disorder Breast cancer Depression Diabetes Hypertension Mental health disorder Skin cancer Substance use disorder Throat cancer Tongue cancer Uterine cancer Social History Housing: Apartment Alcohol intake: never Comment: PT still having difficulty breathing and stridor Patient Tobacco Use Status: Never used Tobacco e-Cigarette/Vaping Use: Never Used Second Hand Smoke Exposure: No Substance Use Type: Marijuana service: No Current occupational status: employed Current occupational exposures/hazards: No Cognitive needs: No Hearing needs: No Vision needs: No Questionnaire Thrive Questionnaire Date Thrive assessed: 08/05/24 JUSTUS-7 AMB Questionnaire JUSTUS-7 Date JUSTUS - 7 assessed: 08/05/24 Source: Developed by Drs. Tony Sutton, Meeta Mendez, Danny Ceja and colleagues, with an educational frida from [employer]. Review of Systems Const Denies body aches, Denies chills, Denies fever(s), Denies headache(s) and Denies poor appetite Eyes Reports no additional complaints ENT Denies dizziness and Denies headache(s) Card Denies chest pain and Denies dyspnea Resp Denies dyspnea GI Denies diarrhea, Denies nausea and Denies vomiting Reports no additional complaints Musc Reports no additional complaints and Denies abnormal gait Skin/Breast Reports system reviewed and no additional complaints, except as documented Neuro Denies abnormal gait, Denies dizziness and Denies headache(s) Psych Reports no additional complaints Physical exam (Primary Care) Vital Signs: Physical exam and vital signs not performed today due to nature of telehealth visit. Tobacco/Smoking Status: Tobacco use Status Tobacco use date assessed 11/08/24 11/08/24 11:18 Patient Tobacco Use Status Never used Tobacco 11/08/24 11:18 e-Cigarette/Vaping Use Never Used 11/08/24 11:18 Thrive Assessment: Date of Thrive Assessment Date Thrive assessed 08/05/24 11/08/24 11:18 Telehealth Telehealth Telehealth Platform: Telephone Location of provider rendering services: practice address Location of patient: address on file Patient Identification confirmed using: Name, : Yes Telehealth method: voice only Patient verbally consented to treatment: Yes Patient verbally consented to billing insurance company: Yes Patient informed of any privacy concerns related to visit: Yes Coding Level of Care Code Tele Est Pt Level 3 (94716) Diagnoses Insomnia G47.00 Stridor R06.1 PTSD (post-traumatic stress disorder) F43.10 Depression F32.9 Anxiety F41.9 GERD (gastroesophageal reflux disease) K21.9 Assessment & Plan Assessment & Plan (1) Insomnia: Code(s): G47.00 - Insomnia, unspecified Category: Medical Plan: Patient was discontinued off of mirtazapine at this time. She denies any issues with insomnia in his declining medication management at this time. (2) Stridor: Code(s): R06.1 - Stridor Category: Medical Plan: Patient has chronic stridor and was evaluated by ENT and referred to [facility] thoracic surgery. She was seen and evaluated by [facility] thoracic surgery team was determined the cases to complex and sent [place] [facility] She is awaiting referral at this time to [facility]. (3) PTSD (post-traumatic stress disorder): Code(s): F43.10 - Post-traumatic stress disorder, unspecified Category: Medical Plan: Patient feels good without the use of medication management at this time. Referral was placed to counseling at patient request and otherwise follow up as needed for this concern. (4) Depression: Code(s): F32.9 - Major depressive disorder, single episode, unspecified Category: Medical Plan: See above (5) Anxiety: Code(s): F41.9 - Anxiety disorder, unspecified Category: Medical Plan: See above plan for PTSD (6) GERD (gastroesophageal reflux disease): Code(s): K21.9 - Gastro-esophageal reflux disease without esophagitis Category: Medical Plan: Avoid trigger foods such as citrus, tomato products, soda, caffeine, spicy foods and other foods that may be irritating to your stomach. Avoid laying flat 3-4 hours after eating and elevate the head of the bed 30 degrees to prevent acid from moving into the esophagus. Continue on omeprazole. Seeing [facility] Plan This note was constructed using voice recognition software. While every effort has been made to ensure accuracy and railroad shop inspector, still areas may have been included sometimes these areas may affect the content or meeting of the given symptoms. Total time spent caring for the patient today was 20 minutes. This includes time spent before the visit reviewing the chart, time spent during the visit, and time spent after the visit and documentation. Orders: Referrals Counseling Referral F32.9 - Major depressive disorder, single episode, unspecified, F41.9 - Anxiety disorder, unspecified, F43.10 - Post-traumatic stress disorder, unspecified
--- OUTSIDE RECORDS SUMMARY | 2024-11-08 13:33 | XMS_ITS | Clinical Summary ---
Author Organization [facility] it Address [address] [place] [address] Care Team Providers Care Veneer Puller Name Role Phone Unavailable Primary Care Provider [...] HPV Vaccines (1 - 3-dose series) 11/05/2015 DTaP,Tdap,and Td Vaccines (1 - Tdap) 11/05/2019 Hepatitis B Vaccines (1 of 3 - 19+ 3-dose series) 11/05/2019 Cervical Cancer Screening: P ap Smear 2021 Depression Screening 05/04/2022 HIV Screening 05/04/2022 Hepatitis C Screening 05/04/2022 Social Influencers of Health Screening 05/04/2022 COVID-19 Vaccine ( - 2023-2 5 season) 2024 Influenza Vaccine (Season Ended) 2025 02/07/2020, 07/02/2019 Pneumococcal Vaccine: Pediatrics (0 to 5 [...] patient's age to complete this topic Meningococcal B Vaccine Aged Out No l onger eligible based on patient's age to complete this topic RSV Immunization Patients Under 20 months Aged Out No longer eligible b ased on patient's age to complete this topic Varicella Vaccines Aged Out No longer eligible based on patient's age to complete this topic
== END 2024-11-08 12:13 | disposition home or self-care (01) ==
LOC: HO.HMCH 11:16
DX: G47.00 Insomnia, unspecified (principal); R06.1 Stridor; F43.10 Post-traumatic stress disorder, unspecified; F32.9 Major depressive disorder, single episode, unspecified; F41.9 Anxiety disorder, unspecified; K21.9 Gastro-esophageal reflux disease without esophagitis

== ENCOUNTER → 2024-11-08 11:16 | Outpatient (BNVA) | payer MEDICARE, MEDICAID, SELFPAY | DX: Z13.89 Encounter for screening for other disorder (principal) ==

== ENCOUNTER 2025-01-16 15:50 | Outpatient (AMB) | payer MEDICARE, MEDICAID, SELFPAY ==
--- NOTE | 2025-01-16 16:00 | MHC.PC.OV ---
Vital Signs 01/16/25 16:02 Height 5 ft 1 in Weight 143 lb 2 oz BMI 27.0 BP 124/66 Blood Pressure Location Lt brachial Position Sitting Pulse 75 Pulse Source Pulse Oximeter Oxygen Delivery Method Room Air Intake Visit Reasons: annual exam Lace Roller Required: No Accompanied by: Self / Same As Patient Allergies albuterol Allergy (Severe, Verified 01/16/25 16:06) tachycardia bee pollen (bee stings) Allergy (Verified 01/16/25 16:06) Anaphylaxis egg Adverse Reaction (Verified 01/16/25 16:06) Unknown Medication List - Last Reconciled 01/16/25 by Barbara Ware PA-C buspirone 5 mg PO TID cholecalciferol (vitamin D3) 25 mcg PO DAILY ciclesonide 160 mcg/actuation (Alvesco) 1 puff inhalation BID epinephrine IM levalbuterol HCl 1.25 mg inhalation Q4-6H PRN levalbuterol tartrate 45 mcg/actuation 2 inhalations inhalation Q6H levonorgestrel (Liletta) intrauterine linaclotide (Linzess) 145 mcg PO DAILY omeprazole 40 mg PO BID pregabalin mg PO BID Tobacco use date assessed: 01/16/25 Dental Screening Dental Screen Date: 01/16/25 Did you have a dental visit in the last 12 months?: No Did you have a dental problem in the last 6 months where you did not have access to dental care?: No Was dental information given to patient?: No HPI annual exam HPI Details 24-year-old female with past medical history of asthma, GERD, IBS, anxiety, depression, PTSD and insomnia last seen 10/2024 presenting for annual exam. Presenting with a follow-up on multiple ongoing health issues and preventative care. The patient has a known bee allergy and is considering seeing an appointment setter for updated testing, as her last test was in high school. The patient has been diagnosed with GERD and is currently managed by a GI specialist. She underwent a gastrocaine in September and is scheduled for a motility study. The patient has a history of SVC syndrome and was last seen by a char filter tank tender head after the of her daughter. She is due for a cardiology referral. 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 vaccines: AZD [facility] Medical History Trachea, stenosis SVC syndrome BPD (bronchopulmonary dysplasia) follow-up encounter Surgical History H/O hernia repair H/O angioplasty H/O endoscopy H/O section History of fundoplication Family History Other Alcoholism Bipolar 1 disorder Breast cancer Depression Diabetes Hypertension Mental health disorder Skin cancer Substance use disorder Throat cancer Tongue cancer Uterine cancer Social History Housing: Apartment Alcohol intake: never Comment: PT still having difficulty breathing and stridor Patient Tobacco Use Status: Never used Tobacco e-Cigarette/Vaping Use: Never Used Second Hand Smoke Exposure: No Substance Use Type: Marijuana service: No Current occupational status: employed Current occupational exposures/hazards: No Cognitive needs: No Hearing needs: No Vision needs: No Questionnaire Thrive Questionnaire Date Thrive assessed: 01/16/25 I am a: Patient What is your living situation today?: I have a steady place to live Within the past 12 months, did the food you bought not last and you didn't have the money to get more?: Never true Within the past 12 months, did you worry whether your food would run out before you got money to buy more?: Never true Do you have trouble paying for medicines?: No Do you have trouble getting transportation to medical appointments?: No Do you have trouble paying your heating and electricity bill?: No Do you have trouble taking care of your child, family member or friend?: No Do you have trouble with day-to-day activities such as bathing, preparing meals, shopping, managing finances, etc.?: No Are you currently unemployed and looking for a job?: No Are you interested in more education?: Yes Please select the resources that you would like help with: None Currently or been in a relationship where the following occur: No concerns reported THRIVE Score: 0 AUDIT C Alcohol Use Questionnaire (AUDIT-C) 2. How many drinks containing alcohol do you have on a typical day when you are drinking?: 1 or 2 3. How often do you have six or more drinks on one occasion?: Less than monthly Total Score: 1 JUSTUS-7 AMB Questionnaire JUSTUS-7 Date JUSTUS - 7 assessed: 01/16/25 Source: Developed by Drs. Tony Sutton, Meeta Mendez, Danny Ceja and colleagues, with an educational frida from [employer]. Review of Systems Const Denies body aches, Denies fatigue, Denies fever(s), Denies frequent falls, Denies headache(s) and Denies weakness Eyes Reports no additional complaints and Denies change in vision ENT Reports dysphagia, Denies dizziness, Denies facial pain, Denies headache(s) and Denies odynophagia Card Denies chest pain, Denies syncope, Denies irregular heart rhythm, Denies leg edema, Denies lightheadedness and Denies dyspnea Resp Denies cough and Denies dyspnea GI Denies abdominal pain, Denies constipation, Reports dysphagia, Reports dyspepsia, Reports heartburn, Denies diarrhea, Denies nausea, Denies odynophagia and Denies vomiting Denies urinary frequency, Denies dysuria, Denies urinary hesitancy and Denies urinary urgency Musc Denies back pain and Denies myalgias Skin/Breast Reports system reviewed and no additional complaints, except as documented Neuro Denies dizziness, Denies syncope, Denies frequent falls, Denies headache(s) and Denies weakness Psych Reports no additional complaints Endo Denies fatigue Physical exam (Primary Care) Vital Signs: Last Vital Signs Pulse 75 01/16/25 16:02 BP 124/66 01/16/25 16:02 Oxygen Delivery Method Room Air 01/16/25 16:02 BMI result Body Mass Index 27.0 Tobacco/Smoking Status: Tobacco use Status Tobacco use date assessed 01/16/25 01/16/25 16:06 Patient Tobacco Use Status Never used Tobacco 01/16/25 16:06 e-Cigarette/Vaping Use Never Used 01/16/25 16:06 Thrive Assessment: Date of Thrive Assessment Date Thrive assessed 01/16/25 01/16/25 16:06 Currently or been in a relationship where the following occur: No concerns reported Const General: cooperative, healthy appearing, comfortable and no acute distress Orientation/consciousness: patient oriented x3 HENMT Head: Yes normocephalic Ears: hearing grossly normal bilaterally, external ears normal, TM's normal bilaterally and EAC's normal General nose exam: Normal external nose present Face and sinus: Yes normal facial exam and Yes sinuses nontender Mouth: Normal oral and palatal mucosa present and tongue normal Throat: Yes posterior oropharynx normal Eyes General: appearance normal, both eyes and all related structures Conjunctivae: conjunctivae normal Pupils: Equal, round and reactive pupils present EOM: EOMs intact bilaterally and No Nystagmus present Neck Neck: Yes normal visual inspection, Yes full ROM and Yes no lymphadenopathy Chest Chest palpation & inspection: normal inspection of the chest Resp Effort & Inspection: normal respiratory effort Auscultation: clear to auscultation bilaterally, no crackles, no rales, no rhonchi, no wheezes and breath sounds present Cardio Rate: regular rate Rhythm: regular rhythm Peripheral pulses: radial pulses present and dorsalis pedis present GI Inspection: Yes normal to inspection and No Abdominal wall edema Palpation (GI): Soft to palpation, not firm and nontender Auscultation: normal bowel sounds Rectal Exam - Female: deferred General: Yes no CVA tenderness Back/Spine/Pelvis Back: no CVA tenderness Skin General skin exam: no rashes or lesions noted Neuro General: patient oriented x3 Cranial nerves: Yes Equal, round and reactive pupils present, Yes Midline tongue present, Yes Ability to bilaterally elevate shoulders present and No Nystagmus present Gait exam (Neuro): Normal gait present Extrem General: Yes normal to inspection, Yes full ROM, No no pedal edema and No edema Psych Speech and movement: Normal speech and movement present Affect: normal affect Insight: Good insight present (Psych) Judgement: Good judgement present (Psych) Coding Level of Care Code Est Pt Prev Care 18-39y(08280) Diagnoses Annual physical exam Z00.00 PTSD (post-traumatic stress disorder) F43.10 Depression F32.9 Anxiety F41.9 GERD (gastroesophageal reflux disease) K21.9 IBS (irritable bowel syndrome) K58.9 Back pain M54.9 Asthma J45.909 Insomnia G47.00 Stridor R06.1 SVC syndrome I87.1 Assessment & Plan Assessment & Plan (1) Annual physical exam: Code(s): Z00.00 - Encounter for general adult medical examination without abnormal findings Category: Medical Plan: Patient is up to date on all recommended routine screenings and vaccinations for her age. blood work is up to date and has been reviewed with her today. Healthy diet and regular exercise is encouraged. (2) PTSD (post-traumatic stress disorder): Code(s): F43.10 - Post-traumatic stress disorder, unspecified Category: Medical Plan: Patient feels good without the use of medication management at this time. She has not been seeing a counselor and is declining referral at this time. (3) Depression: Code(s): F32.9 - Major depressive disorder, single episode, unspecified Category: Medical Plan: See above (4) Anxiety: Code(s): F41.9 - Anxiety disorder, unspecified Category: Medical Plan: See above plan for PTSD (5) GERD (gastroesophageal reflux disease): Code(s): K21.9 - Gastro-esophageal reflux disease without esophagitis Category: Medical Plan: Avoid trigger foods such as citrus, tomato products, soda, caffeine, spicy foods and other foods that may be irritating to your stomach. Avoid laying flat 3-4 hours after eating and elevate the head of the bed 30 degrees to prevent acid from moving into the esophagus. Continue on omeprazole. Seeing [facility] and was recently seen in September and is going for motility study in the coming months and recently started on Buspar by their office. (6) IBS (irritable bowel syndrome): Code(s): K58.9 - Irritable bowel syndrome, unspecified Category: Medical Plan: Advised increase intake and water, fiber and exercise regularly. continue on Linzess (7) Back pain: Comment: [facility] Code(s): M54.9 - Dorsalgia, unspecified Category: Medical Plan: She is currently following with [facility]. She was started on pregabalin and was informed if that does not work for her back pain to reach out to the office. Continue to follow with [facility] (8) Asthma: Code(s): J45.909 - Unspecified asthma, uncomplicated Category: Medical Plan: Asthma currently controlled on present medications. Continue on inhalers. Avoid triggers such as allergies. Continue to follow with [facility] pulmonology (9) Insomnia: Code(s): G47.00 - Insomnia, unspecified Category: Medical Plan: Patient was discontinued off of mirtazapine at this time. She denies any issues with insomnia in his declining medication management at this time. (10) Stridor: Code(s): R06.1 - Stridor Category: Medical Plan: Patient has chronic stridor and was evaluated by ENT and referred to [facility] thoracic surgery. She was seen and evaluated by [facility] thoracic surgery team was determined the cases to complex and sent to [facility]. She is awaiting referral at this time to [facility]. (11) SVC syndrome: Code(s): I87.1 - Compression of vein Category: Medical Plan: Patient was previously being seen by [facility] and is needing to establish with adult char filter tank tender head. Referral was placed today. Plan The patient will be referred to an appointment setter for updated testing regarding her bee allergy, as her last test was in high school. A referral to a char filter tank tender head will be made to address her history of superior vena cava syndrome, as she was last seen by a char filter tank tender head after the of her daughter. The patient will continue her current management for gastroesophageal reflux disease with a motility study scheduled. She will maintain her current regimen for anxiety, depression, and PTSD, as these conditions are well-managed without medication or counseling. The patient will continue using Linzess for constipation management and will follow up with her GI specialist as needed. A Pap smear is due, and the patient will be advised to schedule this with her diesel machinist. Preventative care measures, including vaccinations, are up-to-date, and the patient will be advised to maintain this status. This note was constructed using voice recognition software. While every effort has been made to ensure accuracy and container finisher, still areas may have been included sometimes these areas may affect the content or meeting of the given symptoms. Total time spent caring for the patient today was 30 minutes. This includes time spent before the visit reviewing the chart, time spent during the visit, and time spent after the visit and documentation. Patient was informed and verbally consented to the use of an ambient scribe for clinic note documentation during this visit. Orders: Referrals Allergy & Immunology Referral Z91.030 - Bee allergy status Cardiology Referral I87.1 - Compression of vein
[2025-01-16 16:02] VITALS: BP 124/66; PULSE 75; BMI 27.0
--- OUTSIDE RECORDS SUMMARY | 2025-01-16 16:12 | XMS_ITS | Encounter Summary ---
Author Organization [facility] Address [address] [place] [id number] Phone Care Team Providers Care Airline Flight Attendant Name Role Phone Alvin Theodore MD Unavailable [phone] Christy Hemphill NP Primary Care Provid er Reason for Visit * Reason Comments Med Change Request Encounter Details Date Type Department Care Team (Late st Contact Info) Description 11/20/2024 Refill [facility] [address] [place] [address], [address] [place] [address] Yeimy Hay MD, PhD [address] [place] [id number] [email or web address] Med Change Request Social History Tobacco Use Types Packs/Day Years Used Date Smoking Tobacco: Never Assessed Education Answer Date Recorded Are you interested in more education? Not on jabari e 09/26/2022 Are you concerned about learning? Not on file 09/26/2022 No 09/26/2022 No 09/26/2022 Digital Access Answer Date Recorded No 10/28/2022 No 10/28/2022 Reliable internet access at home? Not on file 10/28/2022 Device with a working camera? Not on file Comments Unknown Sex and Gender Information Value Date Recorded Sex Assigned at Female 07/29/2019 9:53 AM EST Legal Sex Female 11:38 AM EDT Gender Identity Female 07/29/2019 9:53 AM EST Sexual Orientation Straight 07/29/2019 9: 53 AM EST documented as of this encounter Plan of Treatment Scheduled Procedures Name Priority Associated Diagnoses Date/Ti me ESOPHAGEAL MANOMETRY HIGH RESOLUTION Belching symptom ESOPHAGEAL PH IMPEDANCE Belching symptom documented as of this encounter Visit Diagnoses Diagnosis Belching symptom Flatulence, eructation, and gas pain documented in this encounter Care Teams Airline Flight Attendant Relationship Specialty Start Date End Date Christy Hemphill NP [address] [place] [address] PCP - General Nurse Practitioner 10/22/23 Alvin Theodore MD [address] [place] [address] [email or web address] Pediatric Cardiology 10/07/23 documented as of this encounter Additional Source Comments The information contained in this document represents components of the legal health record. It is not the complete legal health record.[facility]
--- OUTSIDE RECORDS SUMMARY | 2025-01-16 16:12 | XMS_ITS | Clinical Summary ---
Author Organization [facility] it Address [address] [place] [address] Care Team Providers Care Technical Internship Name Role Phone Unavailable Primary Care Provider [...] Cervical Cancer Screening: P ap Smear 2021 HIV Screening 05/04/2022 Hepatitis C Screening 05/04/2022 Social Influencers of Health Screening 05/04/2022 COVID-19 Vaccine ( - 2023-2 5 season) 2024 Depression Screening 06/01/2024 Influenza Vaccine (#1) 2025 0, 07/02/2019 Pneumococcal Vaccine: Pediatrics (0 to 5 Years) and At-Risk Patients (6 to 49 Years) Aged Out 06/15/2013 No longer eligible [...]
--- OUTSIDE RECORDS SUMMARY | 2025-01-16 16:13 | XMS_ITS | Clinical Summary ---
Author Organization [facility] Address [address] [place] [address] Phone Care Team Providers Care Storage Administrator Name Role Phone Adam Leach MD Unavailable [facility], [place] Unavailable [phone] Alvaro Ybarra MD Unavailable Tony Pearson MD Unavailable [phone] Christy Hemphill Primary Care Provider [phone] Allergies No known active allergies Medications cetirizine (ZyrTEC) 10 mg tablet Dose: 10 mg, Dose Amount: 1 tab, PO, BID, Dispense Quantity: 120 tab, Refills: 2, Entered: 04/29/22 11:02:00 EST, [id number] 2 Active ipratropium (Atrovent) 0.02 % nebulizer solution Dose Amount: 1 vial, INH, QID, PRN Wheezing, Dispense Quantity: 120 EA, Refills: 5, Entered: 04/29/22 11:02:00 EST, [id number] 2 Active ipratropium (Atrovent) 17 mcg/actuation inhaler Dose Amount: 2 puff, INH, QID, Special Instructions: PRN use with spacer chamber with cough, shortness of breath, Dispense Quantity: 1 EA, Refills: 5, Entered: 04/29/22 11:02:00 EST, [id number] 2 Active lubiprostone (Amitiza) 8 mcg capsule Dose: 8 mcg, Dose Amount: 1 cap, PO, BID, Dispense Quantity: 60 cap, Refills: 3, Entered: 02/05/22 11:50:00 EDT, [facility] #[id number] 2 Active sodium chloride 3 % nebulizer solution Dose: 0.12 g, Dose Amount: 4 mL, INH, QID, Special Instructions: for use when sick; pretreat with levalbuterol, Dispense Quantity: 480 mL, Refills: 6, Entered: 04/29/22 11:01:00 EST, [facility][id number] 2 Active Active Problems No known active problems Immunizations Immunization Administration Dates Next Due Influenza, Unspecified 04/01/2022,2020,02/07/2020,07/02/19,07/02/2019 Pfizer Purple Cap SARS-CoV-2 03/29/2021,09/17/19,08/22/2020 Pneumococcal Polysaccharide PPSV23 06/15/2013 Social History Tobacco Use Types Packs/Day Years Used Date Smoking Tobacco: Never Passive Smoke Exposure: Never Tobacco Cessation:Counseling Given: Not Answered Comments Unknown Sex and Gender Information Value Date Recorded Sex Assigned at Not on file Legal Sex Female 4:40 PM EDT Gender Identity Not on file Sexual Orientation Not on file Last Filed Vital Signs Vital Sign Reading Time Taken Comments Blood Pressure 117/85 04/29/2022 10:39 AM EST Pulse 92 02/23/2024 10:08 AM EDT Temperature 35.8 C (96.4 F) 02/23/2024 10:08 AM EDT Respiratory Rate 24 04/29/2022 10:3 9 AM EST Oxygen Saturation 98% 02/23/2024 10: 08 AM EDT Inhaled Oxygen Concentration - - Weight 70.7 kg (155 lb 13.8 oz) 023 10:49 AM EST Height 157.5 cm (5' 2.01 ) 08/06/2022 1 0:49 AM EST Body Mass Index 28.5 08/06/2022 10:49 AM EST Plan of Treatment Upcoming Encounters Date Type Department Care Team (Late st Contact Info) Description 03/08/2025 Lab Requisition Cerner Conversion Nara Shultz Health Maintenance Due Date Last Done Comments MMR Vaccines (1 of 1 - Standard series) 2001 Varicella Vaccines (1 of 2 - 13+ 2-dose series) 2013 HPV Vaccines (1 - 3-dose series) 11/05/2015 Hepatitis B Vaccines (1 of 3 - 19+ 3-dose series) 11/05/2019 DTaP/Tdap/Td Vaccines (2 - Td or Tdap) 08/25/2023 07/28/2023 COVID-19 Vaccine ( - season) 2024 03/29/2021, 09/16/2020, 08/22/2020 Influenza Vaccine (#1) 2025 , 04/15/2022, 04/01/2022, Additional history exists Pneumococcal Vaccine: Pediatrics (0 to 5 Years) and At-Risk Patients (6 to 49 Years) Aged Out 06/15/2013 No longer eligible based on patient's age to complete this topic HIV Screening Completed 07/28/2021 Hepatitis C Screening Completed 07/28/2021 HIB Vaccines Aged Out No longer eligi [...] patient's age to complete this topic Meningococcal Vaccine Aged Out No trace raghav eligible based on patient's age to complete this topic Rotavirus Vaccines Aged Out No longer eligible based on patient's age to complete this topic Procedures Procedure Name Priority Date/Time Associated Diagnosis Comments HEPATITIS C ANTIBODY Routine 07/28/2021 12:01 PM EST HIV-1 DNA PCR, QUAL Routine 07/28/2021 1 2:01 PM EST from Last 3 Months or Most Recently Relevant to Health Maintenance Results * HIV-1 DNA PCR, QuaL (07/28/2021 12:01 PM EST) HIV-1 DNA PCR, QuaL See Image [facility] 07/28/2021 12:0 1 PM EST 07/28/2021 2:54 PM EST us Opal Varela MD LAB MOLECULAR DIAGNOSTICS ORDE CLARY Final Result Performing Organization Address [facility]/ZIP Co de Phone Number [facility] [address] [place] [address], * Hepatitis C Antibody (07/28/2021 12:01 PM EST) Hepatitis C Ab 0.09 0.00 - 0.79 S/CO [facility] Hepatitis C Ab Interpretation Negative [facility] Comment: 1.) (Medium Importance) Interpretive Data by Norma Landis <= 0.79 S/CO: Negative 0.80 to 0.99 S/CO: Equivocal 1.00 to 4.99 S/CO: Weak Positive >= 5.00 S/CO: Positive *This assay should not be used for blood donor screening, associated re-entry protocols, or for screening Human Cell, Tissues and Cellular and Tissue-Based Products (HCT/P). *Assay performance characteristics have not been established for newborns, infants, children, or populations of immunocompromised or immunosuppressed patients. The presence of antibody to hepatitis C virus (HCV) could indicate current infection, past infection or a biologic false positive antibody test result. Testing for HCV RNA by PCR (Hepatitis C RNA, Quantitative PCR) to detect current infection is recommended. All positive and weak positive Anti HCV's will automatically be sent out to [facility] for [facility] Quant To differentiate past, resolved HCV infection from biologic false positivity for HCV antibody, testing with another HCV antibody assay can be considered (order a [facility] Test and request Hep C Virus Antibody Confirmation (HCVL) from [employer]). Differentiation between past, resolved HCV infection and biologic false positivity for HCV antibody is not required in most cases. 07/28/2021 12:0 1 PM EST 07/28/2021 12:45 PM EST us Opal Varela MD LAB BLOOD ORDERABLES Final Res ult Performing Organization Address [facility]/ZIP Co de Phone Number [facility] [address] [place] [address], from Last 3 Months or Most Recently Relevant to Health Maintenance Additional Health Concerns Infection Onset Date Last Indicated MRSA 12/29/2023 12/29/2023 [facility] [address] [place] [address] Care Teams Storage Administrator Relationship Specialty Start Date End Date Adam Leach MD [address] [place] [address] PCP - Insurance PCP 11/12/20 [facility], [place] [address] [place] [address] [place] [address] PCP - Clinical PCP 12/30/14 Christy Hemphill [address] [place] [address] [address] PCP - General Family Practice 02/17/24 Alvaro Ybarra MD [address] [facility] [address] [place] [address] Associate Attending Otolaryngology 09/05/21 Tony Pearson MD [address] [place] [address] Sap Pi Developer 10/31/23
== END 2025-01-16 16:30 | disposition home or self-care (01) ==
LOC: HO.HMCH 15:50
DX: Z00.00 Encounter for general adult medical examination without abnormal findings (principal); F43.10 Post-traumatic stress disorder, unspecified; F32.9 Major depressive disorder, single episode, unspecified; F41.9 Anxiety disorder, unspecified; K21.9 Gastro-esophageal reflux disease without esophagitis; K58.9 Irritable bowel syndrome, unspecified; M54.9 Dorsalgia, unspecified; J45.909 Unspecified asthma, uncomplicated; G47.00 Insomnia, unspecified; R06.1 Stridor; I87.1 Compression of vein

== ENCOUNTER → 2025-01-16 15:50 | Outpatient (BNVA) | payer MEDICARE, MEDICAID, SELFPAY | DX: Z00.00 Encounter for general adult medical examination without abnormal findings (principal); F43.10 Post-traumatic stress disorder, unspecified; F32.9 Major depressive disorder, single episode, unspecified; F41.9 Anxiety disorder, unspecified; K21.9 Gastro-esophageal reflux disease without esophagitis; K58.9 Irritable bowel syndrome, unspecified; M54.9 Dorsalgia, unspecified; J45.909 Unspecified asthma, uncomplicated; G47.00 Insomnia, unspecified; R06.1 Stridor; I87.1 Compression of vein | CPT/HCPCS: 99395 ==

== ENCOUNTER 2025-02-08 08:08 | Outpatient (AMB) | payer MEDICARE, MEDICAID, SELFPAY ==
--- NOTE | 2025-02-08 08:10 | AM.OFFWIN_ITS ---
Intake Vital Signs 02/08/25 08:11 Height 5 ft 1 in Weight 140 lb BMI 26.4 BP 104/70 Blood Pressure Location Rt brachial Position Sitting Pulse 92 Pulse Source Pulse Oximeter Temp 98.2 F Temp Source Oral Pulse Oximetry (%) 96 Oxygen Delivery Method Room Air Intake Visit Reasons: EP-lower right side abd pain Intake Note: pt presents with worsening RLQ pain, constipation (h/o IBS)- s/s x3 days Patient Tobacco Use Status: Never used Tobacco Allergies albuterol Allergy (Severe, Verified 02/08/25 08:13) tachycardia bee pollen (bee stings) Allergy (Verified 02/08/25 08:13) Anaphylaxis egg Adverse Reaction (Verified 02/08/25 08:13) Unknown Medication List - Last Reconciled 02/08/25 by Alf Thomas MD buspirone 5 mg PO TID cholecalciferol (vitamin D3) 25 mcg PO DAILY ciclesonide 160 mcg/actuation (Alvesco) 1 puff inhalation BID epinephrine IM levalbuterol HCl 1.25 mg inhalation Q4-6H PRN levalbuterol tartrate 45 mcg/actuation 2 inhalations inhalation Q6H levonorgestrel (Liletta) intrauterine linaclotide (Linzess) 145 mcg PO DAILY omeprazole 40 mg PO BID pregabalin mg PO BID Do you need a note to return to daycare/school/sports/work: Yes HPI EP-lower right side abd pain HPI Details History of Present Illness The patient is a 24-year-old female presenting with lower abdominal pain. Lower abdominal pain: Right-sided - Duration: Approximately 3 days. - Location: Right lower quadrant. - Quality: Stabbing pain. - Severity: Worsening over time. - Associated symptoms: None reported.. - No reported fever, nausea, or vomiting . - No medications taken for symptom relie f. Medications: - The patient is not currently taking an y medications. Social History: - The patient has a dnu-zdye-jkg child a t home. Problem List - Lower abdominal pain right-sided - Possible appendicitis Patient Instructions - Go to the emergency room for further e valuation and potential treatment. . Review of System - General: No fever no chills - Neurological: No headaches no dizziness - Ear nose throat: No sore throat no hearing difficulty no ear pain - Cardiovascular: No syncope, no chest pain, no palpitations - Gastrointestinal: No nausea vomiting or diarrhea - Endocrine: No polyuria polydipsia no heat intolerance - Genitourinary: No dysuria , no blood in urine Physical Exam General: No acute distress HEENT: No acute findings Neck: Supple Respiratory system: Able to talk in full sentences, no audible wheeze Gastrointestinal: Lower abdominal pain on the right side, described as stabbing tender to palpation Extremities: No new findings CLEANER SIGNS: Alert awake oriented x3 motor intact Skin: Normal turgor [facility] Medical History Trachea, stenosis SVC syndrome BPD (bronchopulmonary dysplasia) follow-up encounter Surgical History H/O hernia repair H/O angioplasty H/O endoscopy H/O section History of fundoplication Family History Other Alcoholism Bipolar 1 disorder Breast cancer Depression Diabetes Hypertension Mental health disorder Skin cancer Substance use disorder Throat cancer Tongue cancer Uterine cancer Social History Housing: Apartment Alcohol intake: never Comment: PT still having difficulty breathing and stridor Patient Tobacco Use Status: Never used Tobacco e-Cigarette/Vaping Use: Never Used Second Hand Smoke Exposure: No Substance Use Type: Marijuana service: No Current occupational status: employed Current occupational exposures/hazards: No Cognitive needs: No Hearing needs: No Vision needs: No Physical Exam Vital Signs: Last Vital Signs Temp 98.2 F 02/08/25 08:11 Pulse 92 02/08/25 08:11 BP 104/70 02/08/25 08:11 Pulse Ox 96 02/08/25 08:11 Oxygen Delivery Method Room Air 02/08/25 08:11 BMI result Body Mass Index 26.4 Assessment & Plan Assessment & Plan (1) Abdominal pain, acute, right lower quadrant: Code(s): R10.31 - Right lower quadrant pain Plan History of Present Illness The patient is a 24-year-old female presenting with lower abdominal pain. Lower abdominal pain: Right-sided - Duration: Approximately 3 days. - Location: Right lower quadrant. - Quality: Stabbing pain. - Severity: Worsening over time. - Associated symptoms: None reported.. - No reported fever, nausea, or vomiting. - No medications taken for symptom relief. Medications: - The patient is not currently taking any medications. Social History: - The patient has a vgy-chuf-zjc child at home. Problem List - Lower abdominal pain right-sided - Possible appendicitis Patient Instructions - Go to the emergency room for further evaluation and potential treatment. . Coding Level of Care Code Est Pt Level 4 (44439) Diagnoses Abdominal pain, acute, right lower quadrant R10.31
[2025-02-08 08:11] VITALS: BP 104/70; PULSE 92; TEMP 36.8; O2SAT 96; BMI 26.4
--- OUTSIDE RECORDS SUMMARY | 2025-02-08 09:05 | XMS_ITS | Encounter Summary ---
Author Organization [facility] Address [address] [facility] [address] [place] [address] Phone Care Team Providers Care Industrial Roofer Name Role Phone Alvin Theodore MD Unavailable [phone] Christy Hemphill NP Primary Care Provid er Reason for Visit * Reason Comments Med Change Request Encounter Details Date Type Department Care Team (Late st Contact Info) Description 11/20/2024 Refill [facility] [place] [address] [place] [address], 5[address] [place] [address] Yeimy Hay MD, PhD [address] [place] [address] [email or web address] Med Change Request Social History Tobacco Use [...] pain documented in this encounter Care Teams Industrial Roofer Relationship Specialty Start Date End Date Christy Hemphill NP [address] [place] [address] PCP - General Nurse Practitioner 10/22/23 Alvin Theodore MD [address] [place] [address] [email or web address]iology 10/07/23 documented as of this encounter Additional Source Comments The information contained in this document represents components of the legal health record. It is not the complete legal health record.[facility]
--- OUTSIDE RECORDS SUMMARY | 2025-02-08 09:05 | XMS_ITS | Clinical Summary ---
Author Organization [facility] Address [address] [place] [address] Care Team Providers Care Damage Appraiser Name Role Phone Eduarda Morgan DO Primary Care Provider [phone] Source Comments Please note that some or [...] so, obtain the minor's consent prior to disclosure.[facility] Allergies Active Allergy Reactions Criticality Noted [...] (03/31/2019): Added automatically from request for surgery [id number] Immunizations Immunization Administration Dates Next Due Influenza, [...] 80 12/05/2019 1:43 PM EDT Temperature 36.7 C (98.1 F) 05/12/2019 9:33 AM EST Respiratory Rate 19 05/12/2019 10:08 AM EST [...] COVID-19 Vaccine (2023-2 5 season) 2024 INFLUENZA (Season Ended) 2025 02/28/2019 NIRSEVIMAB VACCINES UNDER 8 MONTHS Aged Out No longer eligible b ased on patient's age to complete this topic Insurance [facility] [employer] ([employer]) [id number] Care Teams Damage Appraiser Relationship Specialty Start Date End Date Eduarda Morgan DO [address] [place] [address] PCP - General General Pediatrics 03/03/19
--- OUTSIDE RECORDS SUMMARY | 2025-02-08 09:05 | XMS_ITS | Clinical Summary ---
Author Organization [facility] Address [address] [place] [address] Phone Care Team Providers Care Odd Jobs Day Worker Name Role Phone Adam eLach MD Unavailable [facility], [place] Unavailable [phone] Alvaro Ybarra MD Unavailable Tony Pearson MD Unavailable Christy Hemphill Primary Care Provider [phone] Allergies No known active allergies Medications cetirizine [...] cap, Refills: 3, Entered: 02/05/22 11:50:00 EDT, [facility]/pharmacy #[id number] 2 Active sodium chloride 3 % nebulizer solution Dose: 0.12 g, Dose Amount: 4 mL, INH, QID, Special Instructions: for use when sick; pretreat with levalbuterol, Dispense Quantity: 480 mL, Refills: 6, Entered: 04/29/22 11:01:00 EST, [facility]/pharmacy #[id number] 2 Active Active Problems No [...] (2 - Td or Tdap) 08/25/2023 07/28/2023 Influenza Vaccine (#1) 2025 3, 04/15/2022, 04/01/2022, Additional history exists Pneumococcal Vaccine: [...] EST) HIV-1 DNA PCR, QuaL See Image [facility] 07/28/2021 12:0 1 PM EST 07/28/2021 2:54 PM EST Opal Varela MD LAB MOLECULAR DIAGNOSTICS [place] Final Result [facility] [address] [place] [address], * Hepatitis C Antibody (07/28/2021 12:01 PM EST) Hepatitis C Ab 0.09 0.00 - 0.79 S/CO [facility] Hepatitis C Ab Interpretation Negative [facility] Comment: 1.) (Medium Importance) Interpretive Data by [...] HCV's will automatically be sent out to [facility] for [facility] Quant To differentiate past, resolved HCV infection from biologic false positivity for HCV antibody, testing with another HCV antibody assay can be considered (order a Misc Test and request Hep C Virus Antibody Confirmation (HCVL) from [employer]). Differentiation between past, resolved HCV infection and biologic false positivity for HCV antibody is not required in most cases. 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 12/29/2023 Insurance [facility] Care Teams Odd Jobs Day Worker Relationship Specialty [place] [address] [place] [address] [place] [address] PCP - Insurance PCP 11/12/20 [facility] [address] [place] [address] [place] [address] PCP - Clinical PCP 12/30/14 Christy Hemphill [address] [place] [address] [address] PCP - General Family Practice 02/17/24 Alvaro Ybarra MD [address] [facility] [address] [place] [address] Associate Attending Otolaryngology 09/05/21 Tony Pearson MD [address] [place] [address] Cabin Cleaner 10/31/23
--- OUTSIDE RECORDS SUMMARY | 2025-02-08 09:05 | XMS_ITS | Encounter Summary ---
Author Organization [facility] Address [address] [place] [address] Care Team Providers Care Anesthesiologists' Assistant Name Role Phone Eduarda Morgan DO Primary Care Provider [phone] Reason for Visit * Reason Comments Medication Refill Encounter Details Date Type Department Care Team (Late st Contact Info) Description 02/28/2020 Refill [facility], [place] [address] [place] [address] Elif Bolton MD [address] [place] [address] Poor appetite Social History Tobacco Use Types [...] Anorexia documented in this encounter Care Teams Anesthesiologists' Assistant Relationship Specialty Start Date End Date Eduarda Morgan DO [address] [place] [address] PCP - General General Pediatrics 03/03/19 documented as of this encounter
--- OUTSIDE RECORDS SUMMARY | 2025-02-08 09:05 | XMS_ITS | Clinical Summary ---
Author Organization [facility] Address [address] [place] [address] Care Team Providers Care Embossing Tool Setter Name Role Phone Unavailable Primary Care Provider [...] 19+ 3-dose series) 11/05/2019 Cervical Cancer Screening: Pap Smear 2021 HIV Screening 05/04/2022 Social Influencers of Health Screening 05/04/2022 Depression Screening 06/01/2024 COVID-19 Vaccine ( season) 2025 03/29/2021, 09/16/2020, 08/22/2020 Influenza Vaccine (#1) 2025 , 01/31/2021, 02/07/2020, Additional history exists Pneumococcal Vaccine: Pediatrics (0 to 5 Years) and At-Risk Patients (6 to 49 Years) Aged Out 06/15/2013 No longer eligible based on patient's age to complete this topic Hepatitis C Screening Completed 07/28/2021 HIB Vaccines [...] 20 months Aged Out No longer eligible based on patient's age to complete this topic Varicella Vaccines Aged Out No longer eligible based on patient's age to complete this topic
--- OUTSIDE RECORDS SUMMARY | 2025-02-08 09:05 | XMS_ITS | Clinical Summary ---
Author Organization [facility] Address [address] [place] [address] Phone Care Team Providers Care Esl Instructional Assistant Name Role Phone Alvin Theodore MD Unavailable [phone] Christy Hemphill NP Primary Care Provid er Allergies Active Allergy Reactions Criticality Noted Date Comments Albuterol 08/03/2019 Egg Derived 12/24/2017 Uncoooked Grass Pollen-Red Top, Standard 05/11/2019 Hymenoptera Allergenic Extract 12/24/2017 Venom-Honey Bee Other (See Comments) 12/24/2017 honey bee venom Medications levalbuterol (XOPENEX HFA) 45 mcg/actuation inhaler Inhale 1-2 puffs into the lungs once as needed for wheezing. Active omeprazole (PRILOSEC) 40 MG capsule Take 40 mg by mouth 2 (two) times a day as needed. Active psyllium (METAMUCIL) PowdIndications: Constipation, unspecified constipation type Take 3 g by mouth daily. 3 g = 1 teaspoonful (5 mL) 300 g 2 5 Active busPIRone (BUSPAR) 5 MG tabletIndication s:Belching symptom Take 1 tablet (5 mg total) by mouth 3 (three) times a day. 90 tablet 2 5 Active linaCLOtide (LINZESS) 145 mcg CapIndications:C onstipation, unspecified constipation type Take 1 capsule (145 mcg total) by mouth daily before breakfast. 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, 2nd [place] [address] Yeimy Hay MD, PhD Discharge Disposition: Home or Self Care from Last 3 Months Family History Medical History Relation Comments Hypertension Maternal Grandfather Hypertension Maternal Grandmother Arthritis Mother Hypertension Mother Relation Status Comments Maternal Grandfather Maternal Grandmother Mother Social History Tobacco Use Types Packs/Day Years [...] Orientation Straight 07/29/2019 9: 53 AM EST Last Filed Vital Signs Vital Sign Reading Time Taken Comments Blood Pressure 111/77 10/28/2024 8:19 AM EDT Pulse 98 10/28/2024 8:19 AM EDT Temperature 36.6 C (97.8 F) 10/28/2024 8:19 AM EDT Respiratory Rate 20 06/06/2020 9:48 AM EST Oxygen Saturation 96% 10/28/2024 8:19 AM EDT Inhaled Oxygen Concentration - - Weight 64.3 kg (141 lb 11.2 oz) 10/28/2024 8:19 AM EDT Height 168.2 cm (5' 6.22 ) 10/27/2023 1 1:58 AM EDT Body Mass Index 22.72 10/27/2023 11:58 AM EDT Plan of Treatment Scheduled Procedures Name Priority Associated Diagnoses Date/Ti me ESOPHAGEAL MANOMETRY HIGH RESOLUTION Belching symptom ESOPHAGEAL PH IMPEDANCE Belching symptom Health Maintenance Due Date Last Done Comments DEPRESSION SCREENING 2012 SMOKING Hx and SMOKELESS TOBACCO SCREENING 2013 HPV VACCINES (1 - 3-dose series) 11/05/2015 CHLAMYDIA SCREENING 2016 HEPATITIS C SCREENING 2018 HIV ONE-TIME SCREENING (18-6 5 YEARS) 2018 PAP SMEAR 2021 INFLUENZA VACCINE (#1) 2024 0, 07/02/2019 COVID-19 VACCINE (3 - 2024-2 6 season) 2025 09/16/2020, 08/22/2020 Adult Td,Tdap Booster 07/28/2033 07/28/2023 , 01/21/2013 PNEUMOCOCCAL VACCINES (0-49 years) Aged Out 06/15/2013 No longer eligible b ased on patient's age to complete this topic HEPATITIS A VACCINES Aged Out No long er eligible based on patient's age to complete this topic HIB VACCINES Aged Out No longer eligi ble based on patient's age to complete this topic MENINGOCOCCAL VACCINES (ACWY) Aged Out No longer eligible based on patient's age to complete this topic MENINGOCOCCAL VACCINES (B) Aged Out N o longer eligible based on patient's age to complete this topic Medical Devices Not on file Procedures Procedure Name Priority Date/Time Associated Diagnosis Comments FL BARIUM SWALLOW ESOPHAGRAM DOUBLE CONTRAST Routine 11/15/2024 11:11 AM EDT Belching symptom from Last 3 Months Results * FL BARIUM SWALLOW ESOPHAGRAM DOUBLE CONTRAST (11/15/2024 11:11 AM EDT) Anatomical Region Laterality Modality Chest Radio Fluoroscop y 11/15/2024 1:08 PM EDT Impressions 11/15/2024 1:38 PM EDT Mild gastroesophageal reflux. No hiatal hernia. ATTESTATION: Dr. Yana Correa as teaching physician, have reviewed the images for this case and if necessary edited the report originally created by Elton Proctor MD. Narrative 11/15/2024 1:38 PM EDT FL BARIUM SWALLOW ESOPHAGRAM DOUBLE CONTRAST Referring clinician's provided indication for this examination in [facility]: difficulty swallowing TECHNIQUE: BARIUM SWALLOW was performed with Sodium Carbonate and Barium. OPERATORS: MD Dr. Yana Salter COMPARISON: None FINDINGS: Swallow: The swallowing mechanism was grossly normal. The esophagus was normally distensible and the mucosa was within normal limits. Esophageal motility was within normal limits. Gastroesophageal junction: There is no evidence of hiatal hernia. Reflux: Assessment for gastroesophageal reflux demonstrated mild reflux. The visualized portion of the stomach and proximal small bowel are unremarkable. Radiation Exposure: Fluoroscopy Time: 0 min 39 seconds, Dose: 4.9 mGy, Dose Area Product (DAP): 136 uGy.m2, Number of Spot films: 14 [facility]24 FL BARIUM SWALLOW ESOPHAGRAM DOUBLE CONTRAST Referring clinician's provided indication for this examination in [facility]:difficulty swallowing TECHNIQUE: BARIUM SWALLOW was performed with Sodium Carbonate and Barium. OPERATORS: MD Dr. Yana Salter COMPARISON: None FINDINGS: Swallow: The swallowing mechanism was grossly normal. The esophagus wasnormally distensible and the mucosa was within normal limits. Esophagealmotility was within normal limits. Gastroesophageal junction: There is no evidence of hiatal hernia. Reflux: Assessment for gastroesophageal reflux demonstrated mildreflux. The visualized portion of the stomach and proximal small bowel areunremarkable. Radiation Exposure: Fluoroscopy Time: 0 min 39 seconds, Dose: 4.9 mGy, Dose Area Product (DAP): 136 uGy.m2, Number of Spot films: 14 IMPRESSION: Mild gastroesophageal reflux. No hiatal hernia. ATTESTATION: Dr. Yana Correa as teaching physician, have reviewedthe images for this case and if necessary edited the report originallycreated by Elton Proctor MD. Yeimy Hay MD, PhD [facility] Final R esult from Last 3 Months Insurance [place] A & B Care Teams Esl Instructional Assistant Relationship Specialty Start Date End Date Christy Hemphill NP [address] [place] [address] PCP - General Nurse Practitioner 10/22/23 Alvin Theodore MD [facility] [place] [address] [email or web address] Pediatric Cardiology 10/07/23 Additional Source Comments The information contained in this document represents components of the legal health record. It is not the complete legal health record.[facility]
--- OUTSIDE RECORDS SUMMARY | 2025-02-08 09:05 | XMS_ITS | Encounter Summary ---
Author Organization [facility] Address [address] [place] [address] Care Team Providers Care Purchasing Analyst Name Role Phone Eduarda Morgan DO Primary Care Provider [phone] Reason for Visit * Reason Comments Medication Refill Encounter Details Date Type Department Care Team (Late st Contact Info) Description 06/12/2019 Refill [facility] Gastroenterology[address] [phone] Elif Bolton MD [address] [place] [phone] Generalized abdominal pain Social History Tobacco Use [...] generalized documented in this encounter Care Teams Purchasing Analyst Relationship Specialty Start Date End Date Eduarda Morgan DO [address] [place] [address] PCP - General General Pediatrics 03/03/19 documented as of this encounter
--- OUTSIDE RECORDS SUMMARY | 2025-02-08 09:05 | XMS_ITS | Encounter Summary ---
Author Organization [facility] Address [address] [place] [address] Care Team Providers Care Superintendent Local Name Role Phone Eduarda Morgan DO Primary Care Provider [phone] Reason for Visit * Reason Comments Medication Refill Encounter Details Date Type Department Care Team (Late st Contact Info) Description 10/02/2019 Refill [facility] [address]astroenter[address] [phone] Elif Bolton MD [address] [place] [phone] Generalized abdominal pain Social History Tobacco Use [...] generalized documented in this encounter Care Teams Superintendent Local Relationship Specialty Start Date End Date Eduarda Morgan DO [address] [place] [address] PCP - General General Pediatrics 03/03/19 documented as of this encounter
--- OUTSIDE RECORDS SUMMARY | 2025-02-08 09:05 | XMS_ITS | Encounter Summary ---
Author Organization [facility] Address [address] [place] [address] Care Team Providers Care Mellowing Machine Operator Name Role Phone Eddie, Amy Gonzales SINGH Primary Care Provider [phone] Reason for Visit * Reason Comments Medication Refill Encounter Details Date Type Department Care Team (Late st Contact Info) Description 12/11/2019 Refill [facility] Gastroenterology, [place] [address] [place] [address] Elif Bolton MD [address] [place] [address] Poor appetite Social History Tobacco Use Types [...] Allergies: reviewed Current dose: Reviewed Called Chong [phone] to verify cyproheptadine is one of her active medications. Left voicemail message. documented in this encounter Plan of Treatment Not on file documented as of this encounter Visit Diagnoses Diagnosis Poor appetite Anorexia documented in this encounter Care Teams Mellowing Machine Operator Relationship Specialty Start Date End Date Eduarda Morgan DO [address] [place] [address] PCP - General General Pediatrics 03/03/19 documented as of this encounter
== END 2025-02-08 09:20 | disposition home or self-care (01) ==
PROVIDERS: Visit Provider Internal Medicine
DX: R10.31 Right lower quadrant pain (principal)

== ENCOUNTER → 2025-02-08 08:08 | Outpatient (BNVA) | payer MEDICARE, MEDICAID, SELFPAY | PROVIDERS: Visit Provider Internal Medicine | DX: R10.31 Right lower quadrant pain (principal) | CPT/HCPCS: 99212 ==

== ENCOUNTER 2025-02-14 14:03 | Outpatient (AMB) | payer MEDICARE, MEDICAID, SELFPAY ==
[2025-02-14 14:11] VITALS: BP 116/72; PULSE 65; O2SAT 98; BMI 26.5
--- NOTE | 2025-02-14 14:11 | A.OFFPC_ITS ---
Vital Signs 02/14/25 14:11 Height 5 ft 1 in Weight 140 lb 6 oz BMI 26.5 BP 116/72 Blood Pressure Location Lt brachial Position Sitting Pulse 65 Pulse Source Pulse Oximeter Pulse Oximetry (%) 98 Oxygen Delivery Method Room Air Intake Visit Reasons: f/u walk in Fruit Room Hand Required: No Accompanied by: Self / Same As Patient Allergies albuterol Allergy (Severe, Verified 02/14/25 14:12) tachycardia bee pollen (bee stings) Allergy (Verified 02/14/25 14:12) Anaphylaxis egg Adverse Reaction (Verified 02/14/25 14:12) Unknown Tobacco use date assessed: 01/16/25 Dental Screening Dental Screen Date: 02/14/25 Did you have a dental visit in the last 12 months?: Yes Did you have a dental problem in the last 6 months where you did not have access to dental care?: No Was dental information given to patient?: Patient has dentist HPI f/u walk in HPI Details 24-year-old female with past medical his tory of asthma, GERD, IBS, anxiety, depression, PTSD and insomnia last seen 12/2024 coming in for follow up.? In review of the notes, patient was seen in walk-in clinic 02/08/2025 for abdominal pain recommended ED visit. In review of the notes, patient was seen in [facility] ED for abdominal pain. Cat scan was completed which showed a hematoma within the rectus abdominis muscle as well as a right ovarian cyst. Presenting with abdominal pain and concerns regarding an ovarian cyst and abdominal hematoma. The patient reports a stabbing pain in the lower abdomen, which she attributes to a cyst in her right ovary. The cyst was identified during a recent hospital visit, and it is described as a simple cyst. The pain has not changed or worsened since discharge from the hospital. The patient experienced a kick to the lower abdomen at work, which resulted in a hematoma. She describes the pain as severe, likening it to a stabbing sensation. A fluid collection was noted within the muscle. [facility] Medical History Trachea, stenosis SVC syndrome BPD (bronchopulmonary dysplasia) follow-up encounter Surgical History H/O hernia repair H/O angioplasty H/O endoscopy H/O section History of fundoplication Family History Other Alcoholism Bipolar 1 disorder Breast cancer Depression Diabetes Hypertension Mental health disorder Skin cancer Substance use disorder Throat cancer Tongue cancer Uterine cancer Social History Housing: Apartment Alcohol intake: never Comment: PT still having difficulty breathing and stridor Patient Tobacco Use Status: Never used Tobacco e-Cigarette/Vaping Use: Never Used Second Hand Smoke Exposure: No Substance Use Type: Marijuana service: No Current occupational status: employed Current occupational exposures/hazards: No Cognitive needs: No Hearing needs: No Vision needs: No Questionnaire Thrive Questionnaire Date Thrive assessed: 08/05/24 I am a: Patient What is your living situation today?: I have a steady place to live Within the past 12 months, did the food you bought not last and you didn't have the money to get more?: Never true Within the past 12 months, did you worry whether your food would run out before you got money to buy more?: Never true Do you have trouble paying for medicines?: No Do you have trouble getting transportation to medical appointments?: No Do you have trouble paying your heating and electricity bill?: No Do you have trouble taking care of your child, family member or friend?: No Do you have trouble with day-to-day activities such as bathing, preparing meals, shopping, managing finances, etc.?: No Are you currently unemployed and looking for a job?: No Are you interested in more education?: Yes Please select the resources that you would like help with: None Currently or been in a relationship where the following occur: No concerns reported THRIVE Score: 0 JUSTUS-7 AMB Questionnaire JUSTUS-7 Date JUSTUS - 7 assessed: 01/16/25 Source: Developed by Drs. Tony Sutton, Meeta Mendez, Danny Ceja and colleagues, with an educational frida from [employer]. Review of Systems Const Denies body aches, Denies chills, Denies fever(s), Denies headache(s) and Denies poor appetite Eyes Reports no additional complaints ENT Denies dizziness and Denies headache(s) Card Denies chest pain, Denies edema, Denies lightheadedness and Denies dyspnea Resp Denies cough and Denies dyspnea GI Reports as per HPI, Reports abdominal pain, Denies constipation, Denies diarrhea, Denies nausea and Denies vomiting Reports no additional complaints Musc Reports no additional complaints and Denies abnormal gait Skin/Breast Reports system reviewed and no additional complaints, except as documented Neuro Denies abnormal gait, Denies dizziness and Denies headache(s) Psych Reports no additional complaints Physical exam (Primary Care) Vital Signs: Last Vital Signs Pulse 65 02/14/25 14:11 BP 116/72 02/14/25 14:11 Pulse Ox 98 02/14/25 14:11 Oxygen Delivery Method Room Air 02/14/25 14:11 BMI result Body Mass Index 26.5 Tobacco/Smoking Status: Tobacco use Status Tobacco use date assessed 01/16/25 02/14/25 14:15 Patient Tobacco Use Status Never used Tobacco 02/14/25 14:15 e-Cigarette/Vaping Use Never Used 02/14/25 14:15 Thrive Assessment: Date of Thrive Assessment Date Thrive assessed 08/05/24 02/14/25 14:15 Currently or been in a relationship where the following occur: No concerns reported Const General: cooperative, healthy appearing, comfortable and no acute distress Orientation/consciousness: patient oriented x3 HENMT Head: Yes normocephalic Ears: hearing grossly normal bilaterally General nose exam: Normal external nose present Eyes General: appearance normal, both eyes and all related structures Conjunctivae: conjunctivae normal Neck Neck: Yes full ROM and Yes no lymphadenopathy Resp Effort & Inspection: normal respiratory effort Auscultation: clear to auscultation bilaterally, no crackles, no rales, no rhonchi and no wheezes Cardio Rate: regular rate Rhythm: regular rhythm GI Palpation (GI): Soft to palpation, not firm, Tenderness to palpation present (GI) in the RLQ, no guarding, not rigid and No Rebound tenderness present Skin General skin exam: no rashes or lesions noted Neuro General: patient oriented x3 Gait exam (Neuro): Normal gait present Extrem General: Yes normal to inspection, Yes full ROM and No edema Psych Affect: normal affect Attitude: cooperative Insight: Good insight present (Psych) Judgement: Good judgement present (Psych) Coding Level of Care Code Est Pt Level 3 (59714) Diagnoses Abdominal hematoma S30.1XXA Ovarian cyst N83.209 Assessment & Plan Assessment & Plan (1) Abdominal hematoma: Code(s): S30.1XXA - Contusion of abdominal wall, initial encounter Category: Medical Plan: Patient is advised to avoid strenuous activity and heavy lifting to allow the hematoma to heal properly. She is to continue to monitor her symptoms and given strict recurrent to clinic protocol. The patient is advised to monitor for any worsening symptoms, such as increased pain or bruising, and to report these immediately. (2) Ovarian cyst: Code(s): N83.209 - Unspecified ovarian cyst, unspecified side Category: Medical Plan: The patient will follow up with an court crier-director of accounts receivable to evaluate the ovarian cyst further. The cyst is currently described as simple, and no immediate intervention is planned unless symptoms worsen. Plan This note was constructed using voice recognition software. While every effort has been made to ensure accuracy and electric tripper machine operator, still areas may have been included sometimes these areas may affect the content or meeting of the given symptoms. Total time spent caring for the patient today was 20 minutes. This includes time spent before the visit reviewing the chart, time spent during the visit, and time spent after the visit and documentation. Patient was informed and verbally consented to the use of an ambient scribe for clinic note documentation during this visit.
--- OUTSIDE RECORDS SUMMARY | 2025-02-14 17:53 | XMS_ITS | Encounter Summary ---
Author Organization [facility] Address [address] [place] [address] Care Team Providers Care Fruit Harvester Name Role Phone Eduarda Morgan DO Primary Care Provider [phone] Reason for Visit * Reason Comments Medication Refill Encounter Details Date Type Department Care Team (Late st Contact Info) Description 02/28/2020 Refill [facility] G[facility], [place] [address] [place] [address] Elif Bolton MD [address] [place] [address] Poor appetite Social History Tobacco Use Types [...] Anorexia documented in this encounter Care Teams Fruit Harvester Relationship Specialty Start Date End Date Eduarda Morgan DO [address] [place] [address] PCP - General General Pediatrics 03/03/19 documented as of this encounter
--- OUTSIDE RECORDS SUMMARY | 2025-02-14 17:53 | XMS_ITS | Clinical Summary ---
Author Organization [facility] Address [address] [place] [address] Phone Care Team Providers Care Sustainability Director Name Role Phone Alvin Theodore MD Unavailable [phone] Christy Hemphill NP Primary Care Provid er [...] Type Department Care Team Description 11/20/2024 Refill [facility] [address] [facility], 5th [place] [address] Yeimy Hay MD, PhD Med Change Request 11/15/2024 9:00 AM EDT - 11/15/2024 11:59 PM EDT Hospital Encounter [facility] Radio Fluoroscopy, [address] [facility], 2nd [place] [address] Yeimy Hay MD, PhD Discharge Disposition: Home [...] clinician's provided indication for this examination in [facility]: difficulty swallowing TECHNIQUE: BARIUM SWALLOW was performed [...] Spot films: 14 Procedure [facility] 11/[facility]/2024 [place] BARIUM SWALLOW ESOPHAGRAM DOUBLE CONTRAST Referring clinician's provided indication for this examination in [facility]:difficulty swallowing TECHNIQUE: BARIUM SWALLOW was performed with [...] Elton Proctor MD. Yeimy [facility] MD, PhD [facility] Final R esult from Last 3 Months Insurance [place] & B Care Teams Sustainability Director Relationship Specialty Start Date End Date Christy Hemphill NP [address] [place] [address] PCP - General Nurse Practitioner 10/22/23 Alvin Theodore MD [facility] [place] [address] [email or web address] Pediatric Cardiology 10/07/23 Additional Source Comments The information contained in this document represents components of the legal health record. It is not the complete legal health record.[facility]
--- OUTSIDE RECORDS SUMMARY | 2025-02-14 17:53 | XMS_ITS | Encounter Summary ---
Author Organization [facility] Address [address] [place] [address] Care Team Providers Care Meat Lugger Name Role Phone Eddie, Amy Gonzales SINGH Primary Care Provider [phone] Reason for Visit * Reason Comments Medication Refill Encounter Details Date Type Department Care Team (Late st Contact Info) Description 12/11/[address] [facility] Gastroenterology, [place] [address] [place] [address] Elif Bolton MD [address] [place] [address] Poor appetite Social History Tobacco Use Types [...] Allergies: reviewed Current dose: Reviewed Called Chong [phone] to verify cyproheptadine is one of her active medications. Left voicemail message. documented in this encounter Plan of Treatment Not on file documented as of this encounter Visit Diagnoses Diagnosis Poor appetite Anorexia documented in this encounter Care Teams Meat Lugger Relationship Specialty Start Date End Date Eduarda Morgan DO [address] [place] [address] PCP - General General Pediatrics 03/03/19 documented as of this encounter
--- OUTSIDE RECORDS SUMMARY | 2025-02-14 17:53 | XMS_ITS | Encounter Summary ---
Author Organization [facility] Address [address] [place] [address] Care Team Providers Care Fitting Room Inspector Name Role Phone Eduarda Morgan DO Primary Care Provider [phone] Reason for Visit * Reason Comments Medication Refill Encounter Details Date Type Department Care Team (Late st Contact Info) Description 06/12/2019 Refill [facility] Gastroenterology[address] [phone] Elif Bolton MD [address] [place] [address] Generalized abdominal pain Social History Tobacco Use [...] generalized documented in this encounter Care Teams Fitting Room Inspector Relationship Specialty Start Date End Date Eduarda Morgan DO [address] [place] [address] PCP - General General Pediatrics 03/03/19 documented as of this encounter
--- OUTSIDE RECORDS SUMMARY | 2025-02-14 17:53 | XMS_ITS | Clinical Summary ---
Author Organization [facility] Address [address] [place] [address] Phone Care Team Providers Care Commercial Marketing Specialist Name Role Phone Adam Leach MD Unavailable [facility] [place] Unavailable [phone] Alvaro Ybarra MD Unavailable Tony Pearson MD Unavailable [phone] Christy Hemphill Primary Care Provider [phone] Allergies No known active allergies Medications cetirizine [...] cap, Refills: 3, Entered: 02/05/22 11:50:00 EDT, [facility]/pharmacy #[id number] 2 Active sodium chloride 3 % nebulizer solution Dose: 0.12 g, Dose Amount: 4 mL, INH, QID, Special Instructions: for use when sick; pretreat with levalbuterol, Dispense Quantity: 480 mL, Refills: 6, Entered: 04/29/22 11:01:00 EST, [facility]/pharmacy #[id number] 2 Active Active Problems No known [...] EST) HIV-1 DNA PCR, QuaL See Image [facility] 07/28/2021 12:0 1 PM EST 07/28/2021 2:54 PM EST Opal Varela MD LAB MOLECULAR DIAGNOSTICS MARILEE MEANS Final Result [facility] [address] [place] [address], * Hepatitis C Antibody (07/28/2021 12:01 PM EST) Hepatitis C Ab 0.09 0.00 - 0.79 S/CO [facility] Hepatitis C Ab Interpretation Negative [facility] Comment: 1.) (Medium Importance) Interpretive Data [...] HCV's will automatically be sent out to [facility] for [facility] Quant To differentiate past, resolved HCV infection from biologic false positivity for HCV antibody, testing with another HCV antibody assay can be considered (order a Misc Test and request Hep C Virus Antibody Confirmation (HCVL) from [facility]). Differentiation between past, resolved HCV infection and biologic false positivity for HCV antibody is not required in most cases. 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 12/29/2023 Insurance [facility] [employer] [facility] Care Teams Commercial Marketing Specialist Relationship Specialty [place] [address] [place] [address] [place] [address] PCP - Insurance PCP 11/12/20 [facility] [address] [place] [address] [place] [address] PCP - Clinical PCP 12/30/14 Christy Hemphill [address] [place] [address] [address] PCP - General Family Practice 02/17/24 Alvaro Ybarra MD [address] [facility] [address] [place] [address] Associate Attending Otolaryngology 09/05/21 Tony Pearson MD [address] [place] [address] Bee Rancher 10/31/23
--- OUTSIDE RECORDS SUMMARY | 2025-02-14 17:53 | XMS_ITS | Clinical Summary ---
Author Organization [facility] Address [address] [place] [address] Care Team Providers Care German Professor Name Role Phone Unavailable Primary Care Provider [...]
--- OUTSIDE RECORDS SUMMARY | 2025-02-14 17:53 | XMS_ITS | Encounter Summary ---
Author Organization [facility] Address [address] [facility] [address] [place] [address] Phone Care Team Providers Care Chief Controller Station Name Role Phone Alvin Theodore MD Unavailable [phone] Christy Hemphill NP Primary Care Provid er Reason for Visit * Reason Comments Med Change Request Encounter Details Date Type Department Care Team (Late st Contact Info) Description 11/20/2024 Refill [facility] [address] [place] [address], [address] [place] [address] Yeimy Hay MD, PhD [address] [place] [address] [email or web address] Med Change [...] pain documented in this encounter Care Teams Chief Controller Station Relationship Specialty Start Date End Date Christy Hemphill NP [address] [place] [address] PCP - General Nurse Practitioner 10/22/23 Alvin Theodore MD [address] [place] [address] [email or web address] Cardiology 10/07/23 documented as of this encounter Additional Source Comments The information contained in this document represents components of the legal health record. It is not the complete legal health record.[facility]
--- OUTSIDE RECORDS SUMMARY | 2025-02-14 17:53 | XMS_ITS | Clinical Summary ---
Author Organization [facility] Address [address] [place] [address] Care Team Providers Care Window Cutter Name Role Phone Eduarda Morgan DO Primary Care Provider [phone] Source Comments Please note that some or [...] so, obtain the minor's consent prior to disclosure.[facility] Allergies Active Allergy Reactions Criticality Noted [...] (03/31/2019): Added automatically from request for surgery [id number] Immunizations Immunization Administration Dates Next Due Influenza, [...] SCREENING 2013 COVID-19 Vaccine (2023-2 5 season) 2025 INFLUENZA (#1) 2025 02/28/2019 NIRSEVIMAB VACCINES UNDER 8 MONTHS Aged Out No longer eligible b ased on patient's age to complete this topic Insurance [facility] PLAN ([employer] [place] [id number] Care Teams Window Cutter Relationship Specialty Start Date End Date Eduarda Morgan DO [address] [place] [address] PCP - General General Pediatrics 03/03/19
--- OUTSIDE RECORDS SUMMARY | 2025-02-14 17:53 | XMS_ITS | Encounter Summary ---
Author Organization [facility] Address [address] [place] [address] Care Team Providers Care Professor Of Communication Name Role Phone Eduarda Morgan DO Primary Care Provider [phone] Reason for Visit * Reason Comments Medication Refill Encounter Details Date Type Department Care Team (Late st Contact Info) Description 10/02/2019 Refill [facility] Gastroenter[facility] [phone] Elif Bolton MD [address] [place] [address] Generalized abdominal pain Social History Tobacco Use [...] generalized documented in this encounter Care Teams Professor Of Communication Relationship Specialty Start Date End Date Eduarda Morgan DO [address] [place] [address] PCP - General General Pediatrics 03/03/19 documented as of this encounter
== END 2025-02-14 15:11 | disposition home or self-care (01) ==
LOC: HO.HMCH 14:04
DX: S30.1XXA Contusion of abdominal wall, initial encounter (principal); N83.201 Unspecified ovarian cyst, right side

== ENCOUNTER → 2025-02-14 14:03 | Outpatient (BNVA) | payer MEDICARE, MEDICAID, SELFPAY | DX: N83.209 Unspecified ovarian cyst, unspecified side (principal); S30.1XXD Contusion of abdominal wall, subsequent encounter | CPT/HCPCS: 99212 ==

== ENCOUNTER 2025-04-14 11:17 | Outpatient (AMB) | payer MEDICARE, MEDICAID, SELFPAY ==
[2025-04-14 11:20] VITALS: BP 110/80; PULSE 70; TEMP 36.7; O2SAT 96; BMI 27.4
--- NOTE | 2025-04-14 11:20 | A.OFFPC_ITS ---
Vital Signs 04/14/25 11:20 Height 5 ft 1 in Weight 145 lb 4 oz BMI 27.4 BP 110/80 Blood Pressure Location Lt brachial Position Sitting Pulse 70 Pulse Source Pulse Oximeter Temp 98.1 F Temp Source Temporal Artery Scan Pulse Oximetry (%) 96 Oxygen Delivery Method Room Air Intake Visit Reasons: f/u appt Service Writer Advisor Required: No Accompanied by: Self / Same As Patient Allergies albuterol Allergy (Severe, Verified 04/14/25 11:49) tachycardia bee pollen (bee stings) Allergy (Verified 04/14/25 11:49) Anaphylaxis egg Adverse Reaction (Verified 04/14/25 11:49) Unknown Medication List - Last Reconciled 04/14/25 by Barbara Ware PA-C buspirone 5 mg PO TID cholecalciferol (vitamin D3) 25 mcg PO DAILY ciclesonide 160 mcg/actuation (Alvesco) 1 puff inhalation BID epinephrine IM levalbuterol HCl 1.25 mg inhalation Q4-6H PRN levalbuterol tartrate 45 mcg/actuation 2 inhalations inhalation Q6H levonorgestrel (Liletta) intrauterine linaclotide (Linzess) 145 mcg PO DAILY omeprazole 40 mg PO BID pregabalin mg PO BID Tobacco use date assessed: 01/16/25 Dental Screening Dental Screen Date: 02/14/25 Did you have a dental visit in the last 12 months?: Yes Did you have a dental problem in the last 6 months where you did not have access to dental care?: No Was dental information given to patient?: Patient has dentist HPI f/u appt HPI Details 24-year-old female with past medical his tory of asthma, GERD, IBS, anxiety, depression, PTSD and insomnia last seen 01/2025 coming in for follow up. In review of the notes, patient was seen in [facility] ED 04/06/2025 for SOB workup was negative and patient was given azithromycin and prednisone and discharged home. She was also seen by [facility] endovascular 03/2025 plan for venous insufficiency testing and appointment to follow. Presenting for follow-up after a recent hospitalization for tachycardia and dyspnea, as well as for completion of [place] paperwork. She has seen improvement in her breathing since discharge and is no longer having tachycardia. The patient is followed by pulmonology, though she expresses dissatisfaction with her current provider and is considering a transfer to the [facility] complex care team or another power project manager. She also sees a thoracic surgeon and is followed by a vascular specialist, with a follow-up appointment in June for an ultra sound of the veins in her legs. [facility] Medical History Trachea, stenosis SVC syndrome BPD (bronchopulmonary dysplasia) follow-up encounter Surgical History H/O hernia repair H/O angioplasty H/O endoscopy H/O section History of fundoplication Family History Other Alcoholism Bipolar 1 disorder Breast cancer Depression Diabetes Hypertension Mental health disorder Skin cancer Substance use disorder Throat cancer Tongue cancer Uterine cancer Social History Housing: Apartment Alcohol intake: never Comment: PT still having difficulty breathing and stridor Patient Tobacco Use Status: Never used Tobacco e-Cigarette/Vaping Use: Never Used Second Hand Smoke Exposure: No Substance Use Type: Marijuana service: No Current occupational status: employed Current occupational exposures/hazards: No Cognitive needs: No Hearing needs: No Vision needs: No Questionnaire PHQ-9 Over the last 2 weeks, how often have you been bothered by any of the following problems? 1. Little interest or pleasure in doing things: not at all 2. Feeling down, depressed, or hopeless: not at all 3. Trouble falling or staying asleep, or sleeping too much: nearly every day 4. Feeling tired or having little energy: not at all 5. Poor appetite or overeating: not at all 6. Feeling bad about yourself - or that you are a failure or have let yourself or your family down: not at all 7. Trouble concentrating on things, such as reading the newspaper or watching television: not at all 8. Moving or speaking so slowly that other people could have noticed. Or the opposite - being so fidgety or restless that you have been moving around a lot more than usual: not at all 9. Thoughts that you would be better off or of hurting yourself in some way: not at all Total score: 3 Depression Screening Interpretation: Negative Depression Screening Done: Yes Source: Developed by Drs. Tony Sutton, Meeta Mendez, Danny Ceja and colleagues, with an educational frida from [employer] PTY. Thrive Questionnaire Date Thrive assessed: 08/05/24 I am a: Patient What is your living situation today?: I have a steady place to live Within the past 12 months, did the food you bought not last and you didn't have the money to get more?: Never true Within the past 12 months, did you worry whether your food would run out before you got money to buy more?: Never true Do you have trouble paying for medicines?: No Do you have trouble getting transportation to medical appointments?: No Do you have trouble paying your heating and electricity bill?: No Do you have trouble taking care of your child, family member or friend?: No Do you have trouble with day-to-day activities such as bathing, preparing meals, shopping, managing finances, etc.?: No Are you currently unemployed and looking for a job?: No Are you interested in more education?: Yes Please select the resources that you would like help with: None Currently or been in a relationship where the following occur: No concerns reported THRIVE Score: 0 AUDIT C Alcohol Use Questionnaire (AUDIT-C) 2. How many drinks containing alcohol do you have on a typical day when you are drinking?: 1 or 2 3. How often do you have six or more drinks on one occasion?: Less than monthly Total Score: 1 JUSTUS-7 AMB Questionnaire JUSTUS-7 Date JUTSUS - 7 assessed: 01/16/25 Feeling nervous, anxious, or on edge: 0 = Not at all Worrying too much about different things: 0 = Not at all Trouble relaxin = Not at all Being so restless that it is hard to sit still: 0 = Not at all Becoming easily annoyed or irritable: 0 = Not at all Feeling afraid as if something awful might happen: 0 = Not at all Source: Developed by Drs. Tony Sutton, Danny Dawson and colleagues, with an educational frida from [employer] PT[employer]. Review of Systems Const Denies body aches, Denies chills, Denies fever(s), Denies headache(s) and Denies poor appetite Eyes Reports no additional complaints ENT Denies dizziness and Denies headache(s) Card Denies chest pain, Denies edema, Denies lightheadedness and Denies dyspnea Resp Denies cough and Denies dyspnea GI Denies abdominal pain, Denies constipation, Reports dyspepsia, Reports heartburn, Denies diarrhea, Denies nausea and Denies vomiting Reports no additional complaints Musc Reports no additional complaints and Denies abnormal gait Skin/Breast Reports system reviewed and no additional complaints, except as documented Neuro Denies abnormal gait, Denies dizziness and Denies headache(s) Psych Reports no additional complaints Physical exam (Primary Care) Vital Signs: Last Vital Signs Temp 98.1 F 04/14/25 11:20 Pulse 70 04/14/25 11:20 BP 110/80 04/14/25 11:20 Pulse Ox 96 04/14/25 11:20 Oxygen Delivery Method Room Air 04/14/25 11:20 BMI result Body Mass Index 27.4 Tobacco/Smoking Status: Tobacco use Status Tobacco use date assessed 01/16/25 04/14/25 11:25 Patient Tobacco Use Status Never used Tobacco 04/14/25 11:25 e-Cigarette/Vaping Use Never Used 04/14/25 11:25 PHQ-9: PHQ-9 Score PHQ-9: Total score 3 04/14/25 11:25 Depression Screening Interpretation: Negative Thrive Assessment: Date of Thrive Assessment Date Thrive assessed 08/05/24 04/14/25 11:25 Currently or been in a relationship where the following occur: No concerns reported Const General: cooperative, healthy appearing, comfortable and no acute distress Orientation/consciousness: patient oriented x3 HENMT Head: Yes normocephalic Ears: hearing grossly normal bilaterally General nose exam: Normal external nose present Eyes General: appearance normal, both eyes and all related structures Conjunctivae: conjunctivae normal Neck Neck: Yes full ROM and Yes no lymphadenopathy Resp Effort & Inspection: normal respiratory effort Auscultation: clear to auscultation bilaterally, no crackles, no rales, no rhonchi and no wheezes Cardio Rate: regular rate Rhythm: regular rhythm Skin General skin exam: no rashes or lesions noted Neuro General: patient oriented x3 Gait exam (Neuro): Normal gait present Extrem General: Yes normal to inspection, Yes full ROM and No edema Psych Affect: normal affect Attitude: cooperative Insight: Good insight present (Psych) Judgement: Good judgement present (Psych) Coding Level of Care Code Est Pt Level 3 (81722) Diagnoses SVC syndrome I87.1 Asthma J45.909 Assessment & Plan Assessment & Plan (1) SVC syndrome: Code(s): I87.1 - Compression of vein Category: Medical Plan: following with [facility] vascular. (2) Asthma: Code(s): J45.909 - Unspecified asthma, uncomplicated Category: Medical Plan: The patient's recent hospitalization for tachycardia and dyspnea was likely an asthma exacerbation, potentially triggered by an illness. The associated tachycardia could be secondary to hypoxia or increased use of an albuterol inhaler. The plan is for the patient to continue monitoring her breathing and heart rate, with instructions to go to the emergency department for worsening dyspnea or significant tachycardia. It was recommended that she contact her power project manager to schedule a sooner appointment to address her symptoms, particularly the chest pain with cold exposure, and to discuss potential adjustments to her medication regimen. A referral will be placed for a new power project manager or the [facility] complex care team at the patient's request. Plan This note was constructed using voice recognition software. While every effort has been made to ensure accuracy and implementation consultant, still areas may have been included sometimes these areas may affect the content or meeting of the given symptoms. Total time spent caring for the patient today was 20 minutes. This includes time spent before the visit reviewing the chart, time spent during the visit, and time spent after the visit and documentation. Patient was informed and verbally consented to the use of an ambient scribe for clinic note documentation during this visit.
--- OUTSIDE RECORDS SUMMARY | 2025-04-14 17:24 | XMS_ITS | Clinical Summary ---
Author Organization [facility] Address [address] [place] [address] Phone Care Team Providers Care Optic Fibre Drawer Name Role Phone Adam Leach MD Unavailable [facility] [place] Unavailable [phone] Alvaro Ybarra MD Unavailable Tony Pearson MD Unavailable [phone] Christy Hemphill Primary Care Provider [phone] Allergies No known active allergies Medications cetirizine [...] cap, Refills: 3, Entered: 02/05/22 11:50:00 EDT, [facility]/pharmacy #[id number] 2 Active sodium chloride 3 % nebulizer solution Dose: 0.12 g, Dose Amount: 4 mL, INH, QID, Special Instructions: for use when sick; pretreat with levalbuterol, Dispense Quantity: 480 mL, Refills: 6, Entered: 04/29/22 11:01:00 EST, [facility]/pharmacy #[id number] 2 Active Active Problems No known active problems Encounters Date Type Department Care Team Description 03/08/2025 Lab Requisition Cerner Nara Meehan from Last 3 Months Immunizations Immunization Administration Dates Next Due Influenza, [...] 08/06/2022 10:49 AM EST Plan of Treatment Health Maintenance Due Date Last Done Comments MMR Vaccines (1 of 1 - Standard series) 2001 Varicella Vaccines (1 of 2 - 13+ 2-dose series) 2013 HPV Vaccines (1 - 3-dose series) 11/05/2015 Hepatitis B Vaccines (1 of 3 - 19+ 3-dose series) 11/05/2019 Chlamydia and Gonorrhea Screening 07/28/2022 07/28/2021 DTaP/Tdap/Td Vaccines (2 - Td or Tdap) 08/25/2023 07/28/2023 Influenza Vaccine (#1) 2025 3, 04/15/2022, 04/01/2022, Additional history exists Anemia Screening 07/27/2026 07/27/2021 Pneumococcal Vaccine: Pediatrics (0 to 5 Years) [...] Procedure Name Priority Date/Time Associated Diagnosis Comments CHLAMYDIA AND GONORRHEA, AMPLIFIED, QUAL Routine 07/28/2021 6:17 PM EST HEPATITIS C ANTIBODY Routine 07/28/2021 12:01 PM EST HIV-1 DNA PCR, QUAL Routine 07/28/2021 1 2:01 PM EST CBC Routine 07/27/2021 6:20 PM EST from Last 3 Months or Most Recently Relevant to Health Maintenance Results * Chlamydia and Gonorrhea, Amplified, QuaL (07/28/2021 6:17 PM EST) Gonorrhea, Amplified, QuaL Negative [facility] Comment: 1.) (Medium Importance) Interpretive Data by SYSTEM , SYSTEM on July 29, 2021 20:07 A positive test for N. gonorrhoeae, C. trachomatis or T. vaginalis in a prepubertal child should be reported to the Child Protection Program. Additional testing may be required before treatment, and further evaluation may be necessary. This can be facilitated by contacting the Child Protection Program. Chlamydia, Amplified, QuaL Negative [facility] Comment: 1.) (Medium Importance) Interpretive Data by SYSTEM , SYSTEM on July 29, 2021 20:07 A positive test for N. gonorrhoeae, C. trachomatis or T. vaginalis in a prepubertal child should be reported to the Child Protection Program. Additional testing may be required before treatment, and further evaluation may be necessary. This can be facilitated by contacting the Child Protection Program. 07/28/2021 6:17 PM EST 07/28/2021 6:33 PM EST us Opal Varela MD LAB MICROBIOLOGY - GENERAL ORD ERABLES Final Result [address] [address], * HIV-1 DNA PCR, QuaL (07/28/2021 12:01 PM EST) HIV-1 DNA PCR, QuaL See Image [facility] 07/28/2021 12:0 1 PM EST 07/28/2021 2:54 PM EST us Opal Varela MD LAB MOLECULAR DIAGNOSTICS ORDE RABLES Final Result Performing Organization Address City/[facility]/ZIP Co de Phone Number [address] [address], * Hepatitis C Antibody (07/28/2021 12:01 PM EST) Hepatitis C Ab 0.09 0.00 - 0.79 S/CO [facility] Hepatitis C Ab Interpretation Negative [facility] Comment: 1.) (Medium Importance) Interpretive Data by [...] HCV's will automatically be sent out to [facility] for [facility] Quant To differentiate past, resolved HCV infection from biologic false positivity for HCV antibody, testing with another HCV antibody assay can be considered (order a Misc Test and request Hep C Virus Antibody Confirmation (HCVL) from [facility]). Differentiation between past, resolved HCV infection and biologic false positivity for HCV antibody is not required in most cases. 07/28/2021 12:0 1 PM EST 07/28/2021 12:45 PM EST Opal Varela MD LAB BLOOD ORDERABLES Final Res ult [facility] [address] [place] [address], * CBC (07/27/2021 6:20 PM EST) MPV 9.8 9.6 - 11.9 fL [facility] nRBC 0.0 0.0 - 0.0 /100 WBC [facility] RDW 14.1 11.9 - 14.8 % [facility] NRBC # 0.00 0.00 - 0.00 K cells/uL [facility] WBC 7.67 4.94 - 10.04 K cells/uL [facility] MCV 91.2 80.7 - 93.7 fL [facility] MCH 30.0 25.7 - 31.2 pg [facility] MCHC 32.9 31.3 - 34.0 g/dL [facility] RBC 4.54 4.03 - 4.91 M cells/uL [facility] Platelets 249 199 - 352 K cells/uL [facility] Hemoglobin 13.6 11.4 - 14.8 g/dL [facility] Hematocrit 41.4 35.5 - 44.6 % [facility] 07/27/2021 6:20 PM EST 07/27/2021 6:38 PM EST us Ginny Vee MD LAB BLOOD ORDERABLES Final R esult Performing Organization Address City/State/[facility] Co de Phone Number [facility] [address] [place] [address], from Last 3 Months or Most Recently Relevant to Health Maintenance Additional Health Concerns Infection Onset Date 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 Care Teams Optic Fibre Drawer Relationship Specialty Start Date End Date Adam Leach MD [address] [place] [address] PCP - Insurance [facility] [address] [place] [address] [place] [address] PCP - Clinical PCP 12/30/14 Christy Hemphill [address] [place] [address] [place] [address] PCP - General Family Practice 02/17/24 Alvaro Ybarra MD [address] [place] [address] [address] [place] [address] Associate Attending Otolaryngology 09/05/21 Tony Pearson MD [address] [place] [address] Storage Battery Inspector And Tester 10/31/23
--- OUTSIDE RECORDS SUMMARY | 2025-04-14 17:24 | XMS_ITS | Data Portability ---
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 At age 15 she underwent tracheal reconstruction using rib graft. Since that time she has received serial bronchoscopy with laser treatment and injection to manage recurrence of scar tissue. Her most recent was approximately 3 years ago. About 3 weeks ago she experienced stridor that improved somewhat with prednisone. 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 Recommend referral to [facility] thoracic surgery for management of tracheal stenosis dplosky Not available 10/04/2024 09:34:51 Plan of Treatment Reminders Order Date Submit Date Provider Last Modified By Organization Details Last Modified Time Details Appointments None recorded. Lab None recorded. [place] [facility] [place] stenosis management 2024 025 [email or web address] [facility], [address] [place] [address] [place], [address], 16:08:28 Procedures None recorded. Surgeries None recorded. Imaging None recorded. Medication Orders None recorded. Patient TargetsNo targets recorded. Patient InstructionsNo instructions recorded. Reason for Referral Thoracic Surgeon Referral fo r Congenital subglottic stenosis [facility] [place]al stenosis management Referring Physician: Jonathan Camara, Otolaryngology, Encounter Date: 10/04/2024 Problems Name Problem SNOMED Code Status Onset Date Resolution Date Notes Provider Name and Address Organization Details Recorded Time Asthma 411224947 Active 2016 Other asthma; Note: Date Diagnosed: 03/26/2017 10:52 AM (J45.998) Not Available [facility] 4 02:27:24 Stridor 99165377 Active 2016 Stridor; Note: Date Diagnosed: 04/07/2017 9:26 AM (R06.1) Not Available [facility] 4 02:27:01 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; Note: Date Diagnosed: 04/07/2017 9:26 AM (Q31.1) Not Available [facility] 4 02:27:27 Paralysis of larynx 42133924 Active 2016 Paralysis of vocal cords and larynx, unspecifie d; Note: Date Diagnosed: 04/07/2017 9:26 AM (J38.00) Not Available [facility] 4 02:27:17 Follow-up visit Active 2017 Medical surveillan ce following completed treatment; Note: Date Diagnosed: 06/24/2017 2:58 PM (Z09) Not Available [facility] 4 02:27:12 Dysphonia 80663354 Active 2020 Hoarseness ; Note: Date Diagnosed: 08/28/2020 12:36 PM (R49.0) Not Available [facility] 4 02:26:55 Vocal cord paralysis 742637256 Active 2024 JONATHAN CAMARA MD [address] [place] [address],[place] [address], [facility] [place], [address] , [facility] 5 09:35:15 Problem Notes None recorded. Procedures Surgical History Date Name Laterality Status Provider Name and Address Organization Details Recorded Time 10/04/2024 FOL_DP completed JONATHAN CAMARA MD [address] [place] [address],[place] [address], [place], [address], [facility] - [facility] 10/04/2024 09:32:18 Imaging Results None recorded. Procedure Notes None recorded. Medical Equipment None Reported. Allergies Allergen ID Allergen Name Allergen Category Reaction Reaction Severity Criticality Documentation Date Start Date Code Code System Note Provider Name and Address Organization Details Recorded Time 77805 albuterol medicatio n other Not available Not available 10/13/2023 435 RxNorm React ion: unkno wn, unspe cifie d;; Not Available [facility] 4 00:51:26 96635 honey bee venom environme nt other Not available Not available 10/13/2023 80053 7 RxNorm React ion: unkno wn, unspe cifie d;; Not Available [facility] 4 00:51:36 Medications Name Sig Start Date Stop Date Status Note LastModified by Organization Details LastModified Time amoxicill in 500 mg capsule TAKE 1 CAPSULE BY MOUTH EVERY 8 HOURS WITH FOOD UNTIL COMPLETE D 10/04 completed Not Available Not Available Not Available methocarb payal 500 mg tablet TAKE 1 TABLET BY MOUTH EVERY DAY FOR 10 DAYS 10/04 completed Not Available Not Available Not Available clonidine HCl 0.1 mg tablet 10/04 completed Medicati on ID: [id number] D uration Value: 30 Brand Name: clonidin e HCl Send Method: E-Prescr ibed Sub s Allowed: subs OK Speci al Instruct ion: TAKE 1 TABLET BY MOUTH EVERY NIGHT AT BEDTIME Medicati onGeneri cName: clonidin e HCl Not Available Not Available Not Available prednison e 10 mg tablet 5 TABS DAILY FOR 2 DAYS,4 TABS DAILY X2 DAYS,3 TABS DAILY X2 DAYS,2 TABS DAILY X2 DAYS,1 TAB X2 DAYS 10/04 completed Not Available Not Available Not Available cetirizin e 10 mg tablet 10/04 completed Medicati on ID: [id number] D uration Value: 30 Brand Name: cetirizi ne Send Method: E-Prescr ibed Sub s Allowed: subs OK Speci al Instruct ion: TAKE 1 TABLET BY MOUTH AT BEDTIME FOR 30 DAYS Med icationG enericNa me: cetirizi ne Not Available Not Available Not Available cefpodoxi me 200 mg tablet TAKE 1 TABLET BY MOUTH TWICE A DAY FOR 5 DAYS 10/04 completed Not Available Not Available Not Available azithromy tamar 250 mg tablet TAKE 2 TABLETS BY MOUTH TODAY, THEN TAKE 1 TABLET DAILY FOR 4 DAYS DIRECTED 10/04 completed Not Available Not Available Not Available ibuprofen 800 mg tablet TAKE 1 TABLET EVERY 8 HOURS FOR PAIN active Not Available Not Available No t Available fluconazo le 150 mg tablet TAKE 1 TABLET BY MOUTH ONCE,INS TR:REPEA T DOSE IF STILL HAVING SYMPTOMS IN 72 HOURS active Not Available Not Available No t Available meloxicam 15 mg tablet TAKE 1 TABLET EVERY DAY BY ORAL ROUTE WITH MEAL(S) FOR 30 DAYS, FOR LOW BACK PAIN. 10/04 completed Not Available Not Available Not Available metronida zole 0.75 % (37.5 mg/5 gram) vaginal gel USE 1 APPLICAT OR VAGINALL Y TWICE WEEKLY FOR 6 MONTHS active Not Available Not Available No t Available prednison e 20 mg tablet TAKE 2 TABLETS BY MOUTH EVERY MORNING FOR 5 DAYS 10/04 completed Not Available Not Available Not Available clonidine HCl 0.3 mg tablet 10/04 completed Medicati on ID: [id number] D uration Value: 30 Brand Name: clonidin e HCl Send Method: E-Prescr ibed Sub s Allowed: subs OK Speci al Instruct ion: TAKE 1 TABLET (0.3 MG TOTAL) BY MOUTH NIGHTLY. Medicat ionGener icName: clonidin e HCl Not Available Not Available Not Available sertralin e 100 mg tablet TAKE 1 TABLET BY MOUTH EVERY DAY 10/04 completed Not Available Not Available Not Available prednison e 5 mg tablet TAKE 4 TABLETS BY MOUTH ONCE DAILY X3 DAYS, 3 TABS X3 DAYS, 2 TABS X 3 DAY, 1 TAB X3 DAYS 10/04 completed Not Available Not Available Not Available metronida zole 500 mg tablet TAKE 1 TABLET BY MOUTH EVERY 12 HOURS FOR 7 DAYS 10/04 completed Not Available Not Available Not Available sulfameth oxazole 800 mg-trimet hoprim 160 mg tablet 2017 active Medicati on ID: [id number] D uration Value: 7 Brand Name: sulfamet hoxazole -trimeth oprim Se nd Method: E-Prescr ibed Sub s Allowed: subs OK Speci al Instruct ion: TAKE 1 TABLET BY MOUTH TWICE A DAY FOR 7 DAYS Med icationG enericNa me: sulfamet hoxazole -trimeth oprim Not Available Not Available Not Available omeprazol e 40 mg capsule,d elayed release TAKE 1 CAPSULE BY MOUTH TWICE A DAY active Not Available Not Available No t Available amoxicill in 500 mg tablet TAKE 1 TAB EVERY 8 HOURS WITH FOOD UNTIL COMPLETE D 10/04 completed Not Available Not Available Not Available Serevent Diskus 50 mcg/dose powder for inhalatio n INHALE 1 PUFF BY MOUTH TWICE A DAY active Not Available Not Available No t Available cyprohept adine 4 mg tablet 10/04 completed Medicati on ID: [id number] D uration Value: 30 Brand Name: cyprohep tadine S end Method: E-Prescr ibed Sub s Allowed: subs OK Speci al Instruct ion: TAKE 1 TABLET AT BEDTIME Medicati onGeneri cName: cyprohep tadine Not Available Not Available Not Available clonidine HCl 0.2 mg tablet 10/04 completed Medicati on ID: [id number] D uration Value: 30 Brand Name: clonidin e HCl Send Method: E-Prescr ibed Sub s Allowed: subs OK Speci al Instruct ion: TAKE 1 TABLET BY MOUTH EVERYDAY AT BEDTIME Medicati onGeneri cName: clonidin e HCl Not Available Not Available Not Available methotrex ate sodium 2.5 mg tablet 10/04 completed Medicati on ID: [id number] D uration Value: 30 Brand Name: methotre xate sodium S end Method: E-Prescr ibed Sub s Allowed: subs OK Speci al Instruct ion: TAKE 8 TABLETS BY MOUTH ONCE EVERY WEEK [facility] methotre [facility]ate sodium Not Available Not Available Not Available esomepraz ole magnesium 40 mg capsule,d elayed release TAKE 1 CAPSULE BY MOUTH EVERY DAY active Not Available Not Available No t Available buspirone 10 mg tablet TAKE 1 TABLET BY MOUTH THREE TIMES A DAY 10/04 completed Not Available Not Available Not Available sertralin e 25 mg tablet TAKE 1 TABLET BY MOUTH DAILY FOR 3 DAYS 10/04 completed Not Available Not Available Not Available hydrocort isone 2.5 % topical cream APPLY TOPICALL Y 2 TIMES A DAY NEEDED FOR RASH. active Not Available Not Available No t Available mont[address] 10 mg tablet 10/26/ 2017 active Medicati on ID: [id number] D uration Value: 30 Brand Name: monteluk ast Send Method: E-Prescr ibed Sub s Allowed: subs OK Speci al Instruct ion: TAKE 1 TABLET BY MOUTH EVERY EVENING Medicati onGeneri cName: monteluk ast Not Available Not Available Not Available hydroxyzi ne HCl 25 mg tablet TAKE 1 TABLET BY MOUTH AT BEDTIME 10/04 completed Not Available Not Available Not Available gabapenti n 100 mg capsule TAKE 1 CAPSULE BY MOUTH TWICE DAILY. 10/04 completed Not Available Not Available Not Available levalbute rol 1.25 mg/3 mL solution for nebulizat ion USE 3 ML VIA NEBULIZE R 3 TIMES A DAY, J45.40 active Not Available Not Available No t Available epinephri ne 0.3 mg/0.3 mL injection , auto-inje ctor PLEASE SEE ATTACHED FOR DETAILED DIRECTIO NS active Not Available Not Available No t Available clotrimaz ole 1 % topical cream APPLY 1 APPLICAT ION TOPICALL Y 2 (TWO) TIMES A DAY FOR 28 DAYS. 10/04 completed Not Available Not Available Not Available sertralin e 50 mg tablet TAKE 1 TABLET BY MOUTH EVERY DAY 10/04 completed Not Available Not Available Not Available medroxypr ogesteron e 150 mg/mL intramusc ular suspensio n INJECT 1 MILLILIT ER (150 MG) BY INTRAMUS CULAR ROUTE EVERY 3 MONTHS FOR 90 DAYS active Not Available Not Available No t Available amoxicill in 500 mg-potass ium clavulana te 125 mg tablet PLEASE TAKE EACH TAB 8 HOURLY UNTIL FINISH 10/04 completed Not Available Not Available Not Available Vitamin D3 25 mcg (1,000 unit) capsule TAKE 1 CAPSULE BY MOUTH EVERY DAY active Not Available Not Available No t Available mirtazapi ne 7.5 mg tablet TAKE 1 TABLET BY MOUTH EVERYDAY AT BEDTIME active Not Available Not Available No t Available nitrofura ntoin monohydra te/macroc rystals 100 mg capsule TAKE 1 CAPSULE BY MOUTH EVERY 12 HOURS WITH FOOD FOR 5 DAYS active Not Available Not Available No t Available levalbute rol HFA 45 mcg/actua tion aerosol inhaler 2016 active Medicati on ID: [id number] D uration Value: 30 Brand Name: levalbut louie tartrate Send Method: E-Prescr ibed Sub s Allowed: subs OK Speci al Instruct ion: INHALE 2 PUFFS BY MOUTH EVERY 4 HOURS NEEDED Karen Manningic Name: levalbut louie tartrate Not Available Not Available Not Available Atrovent HFA 17 mcg/actua tion aerosol inhaler 10/04 completed Medicati on ID: [id number] D uration Value: 30 Brand Name: Atrovent HFA Send Method: E-Prescr ibed Sub s Allowed: subs OK Speci al Instruct ion: TAKE 2 PUFFS BY MOUTH 4 TIMES A DAY NEEDED M andrew Manningic Name: Atrovent HFA Not Available Not Available Not Available pregabali n 75 mg capsule TAKE 1 CAPSULE BY MOUTH TWICE A DAY active Not Available Not Available No t Available Symbicort 160 mcg-4.5 mcg/actua tion HFA aerosol inhaler 2016 active Medicati on ID: [id number] D uration Value: 30 Brand Name: Symbicor t Send Method: E-Prescr ibed Sub s Allowed: subs OK Speci al Instruct ion: INHALE 2 PUFFS TWICE A DAY RINSE MOUTH AND THROAT AFTER USE Medi cationGe nericNam e: Symbicor t Not Available Not Available Not Available Alvesco 160 mcg/actua tion aerosol inhaler INHALE 2 PUFFS TWICE A DAY active Not Available Not Available No t Available Dulera 200 mcg-5 mcg/actua tion HFA aerosol inhaler 10/04 completed Medicati on ID: [id number] D uration Value: 30 Brand Name: Dulera S end Method: E-Prescr ibed Sub s Allowed: subs OK Speci al Instruct ion: TAKE 2 PUFFS BY MOUTH 2 TIMES A DAY FOR 30 DAYS Med icationG enericNa me: Dulera Not Available Not Available Not Available Linzess 145 mcg capsule TAKE 1 CAPSULE BY MOUTH EVERY DAY 10/04 completed Not Available Not Available Not Available Xulane 150 mcg-35 mcg/24 hr transderm al patch 2017 active Medicati on ID: [id number] D uration Value: 90 Brand Name: Xulane S end Method: E-Prescr ibed Sub s Allowed: subs OK Speci al Instruct ion: APPLY 1 PATCH EACH WEEK FOR 3 WEEKS, THEN REMOVE FOR 1 WEEK. Me dication GenericN lillie: Xulane Not Available Not Available Not Available Spiriva Respimat 2.5 mcg/actua tion solution for inhalatio n 2016 active Medicati on ID: [id number] D uration Value: 30 Brand Name: Spiriva Respimat Send Method: E-Prescr ibed Sub s Allowed: subs OK Speci al Instruct ion: INHALE 2 PUFFS BY MOUTH DAILY Me dication GenericN lillie: Spiriva Respimat Not Available Not Available Not Available Liletta 20.4 mcg/24 hr (up to 8 years) 52 mg intrauter ine device active Not Available Not Available Not Available Humira(CF ) Pen 40 mg/0.4 mL subcutane ous kit 10/04 completed Medicati on ID: [id number] D uration Value: 28 Brand Name: Humira Pen Send Method: E-Prescr ibed Sub s Allowed: subs OK Medic ationGen ericName : Humira Pen Not Available Not Available Not Available Vitals Date Recorded Body height Body mass index (BMI) Body weight Provider Name and Address Organization Details Last Updated DateTime 10/04/2024 154.94 cm 24.6 kg/m2 67485.01 g GHASSAN DEL RIO [place] - [facility] 10/04/2024 09:13:12 Social History None recorded. Functional Status None recorded. Mental Status None recorded. Family History Nothing Reported. Medical History No medical history recorded. Gynecological HistoryNo gynecological history recorded. 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 Q31.1 Vocal cord paralysis 302 418306 J38.01 [id number] Health Concerns Section Related Observation LastModified by Organization Detai ls LastModified Time None Recorded Concern Status LastModified by Organization Details LastModified Time None Recorded Advance Directives Directive None Recorded Payers Insurance Date Sequence Insurance Name Policy Number Policy Fisher Covered Member ID Fisher Member ID Guarantor Name 10/04/2024 2 [place] [facility] Chong Gilliland [id number] Gem GoodwinGilliland 10/04/2024 1 [place]IC[place] B[place] [employer] Chong [place]iland [id number] Gem Darshana Notes Date Note Type Note Provider Name and Address Organization Details Recorded Time text/html ROS as noted in the HPI Tracheal stenosisepisode of stridor 09/18/24 rx prednisonepreviously [facility] - now outgrown care there.had serial tracheal laser surgery and injections q3 yrs since surgery, most recent around 2021 PV 04/27/2018 Vijaya FOL -left vocal cord paramedian position. 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 then treated with laryngotracheal plasty with rib graft at age 15, Montse fundoplication. 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
--- OUTSIDE RECORDS SUMMARY | 2025-04-14 17:24 | XMS_ITS | Clinical Summary ---
Author Organization [facility] Address [address] [place] [address] Care Team Providers Care Concrete Journeyman Name Role Phone Unavailable Primary Care Provider [...] 2025 , 01/31/2021, 02/07/2020, Additional history exists RSV Immunization Adult Patients (1 - 1-dose 75+ series) 11/05/2075 Pneumococcal Vaccine: Pediatrics (0 to 5 Years) [...]
== END 2025-04-14 12:01 | disposition home or self-care (01) ==
LOC: HO.HMCH 11:18
DX: I87.1 Compression of vein (principal); J45.909 Unspecified asthma, uncomplicated

== ENCOUNTER → 2025-04-14 11:17 | Outpatient (BNVA) | payer MEDICARE, MEDICAID, SELFPAY | DX: I87.1 Compression of vein (principal); J45.909 Unspecified asthma, uncomplicated | CPT/HCPCS: 99212 ==